=== PATIENT | male | born 1985 | race African-American/Black ===

== ENCOUNTER 2024-09-13 11:18 | Emergency (ER) | payer MEDICAID, OTHER ==
[~2024-09-13] VITALS: Ht 170.2 cm; Wt 94.0 kg
--- NOTE | 2024-09-13 11:28 | ECG ---
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
--- NOTE | 2024-09-13 11:49 | ED.PDOC ---
History of Present Illness HPI Comments This is a 39-year-old male who comes in with chief complaint of chest pain off and on for the past two weeks. The patient states that the pain is left-sided and increases with movement. There has been no nausea or vomiting. The patient was complaining of some shortness for breath but no cough. Patient was able to ambulate into the emergency department's without any difficulty. 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 Chief Complaint: Chest Pain Time Seen by MD: 11:30 Reviewed Notes: Nurses Notes, Medications, Allergies (No allergies to medications) Allergies: Coded Allergies: NO KNOWN ALLERGIES (Unverified , 09/13/24) Information Source: Patient Mode of Arrival: Ambulatory Severity: Mild Timing: Weeks Duration: Intermittent Prehospital treatment: None Associated signs and symptoms Associated mild shortness a breath Past Medical History PAST MEDICAL HISTORY: Gout Surgical History: Denies all surgeries Family History Family History: Family hx of heart nick Social History Smoker: Cigarettes Alcohol: Occasionally Drugs: Denies Drug Use, Marijuana, Methamphetamine Lives In: Home Constitutional: denies: chills, diaphoresis, fatigue, fever, malaise, sweats, weakness, others EENTM: denies: blurred vision, double vision, ear bleeding, ear discharge, ear drainage, ear pain, ear ringing, eye pain, eye redness, hearing loss, mouth pain, mouth swelling, nasal discharge, nose bleeding, nose congestion, nose pain, photophobia, tearing, throat pain, throat swelling, voice changes, others Respiratory: reports: shortness of breath; denies: cough, hemoptysis, orthopnea, SOB at rest, SOB with excertion, stridor, wheezing, others Cardiovascular: reports: chest pain; denies: dizzy spells, diaphoresis, Dyspnea on exertion, edema, irregular heart beat, left arm pain, lightheadedness, palpitations, PND, syncope, others Gastrointestinal: reports: nausea; denies: abdomen distended, abdominal pain, blood streaked bowels, constipated, diarrhea, dysphagia, difficulty swallowing, hematemesis, melena, poor appetite, poor fluid intake, rectal bleeding, rectal pain, vomiting, others Genitourinary: denies: burning, dysuria, flank pain, frequency, hematuria, incontinence, penile discharge, penile sore, pain, testicle pain, testicle swelling, urgency, others Neurological: denies: dizziness, fainting, headache, left sided numbness, left sided weakness, numbness, paresthesia, pre-existing deficit, right sided numbness, right sided weakness, seizure, speech problems, tingling, tremors, weakness, others Musculoskeletal: denies: back pain, gout, joint pain, joint swelling, muscle pain, muscle stiffness, neck pain, others Integumetry: denies: bruises, change in color, change in hair/nails, dryness, laceration, lesions, lumps, rash, wounds, others Allergic/Immunocompromised: denies: Difficulty Healing, Frequent Infections, Hives, Itching, others Hematologic/Lymphatic: denies: anemia, blood clots, easy bleeding, easy bruising, swollen glands, others Endocrine: denies: excessive hunger, excessive sweating, excessive thirst, excessive urination, flushing, intolerance to cold, intolerance to heat, unexplained weight gain, unexplained weight loss, others Psychiatric: denies: anxiety, bipolar disorder, depression, hopeless, panic disorder, schizophrenia, sleepless, suicidal, others Physical Exam General Appearance: No Apparent Distress HEENT: Normal ENT Inspection, Pharynx Normal, TMs Normal Neck: Full Range of Motion, Non-Tender, Normal, Normal Inspection Respiratory: Chest Non-Tender, Lungs Clear, No Accessory Muscle Use, No Respiratory Distress, Normal Breath Sounds Cardiovascular: No Edema, No JVD, No Murmur, No Gallop, Normal Peripheral Pulses, Regular Rate/Rhythm Breast Exam: Deferred Gastrointestinal: No Organomegaly, Non Tender, No Pulsatile Mass, Normal Bowel Sounds, Soft Genitalia: Deferred Pelvic: Deferred Rectal: Deferred Extremities: No calf tenderness, Normal capillary refill, Normal inspection, Normal range of motion, Non-tender, No pedal edema Musculoskeletal : Apperance: Normal Neurologic: Alert, surveillance analyst II-XII nml as Tested, No Motor Deficits, Normal Affect, Normal Mood, No Sensory Deficits Cerebellar Function: Normal Reflexes: Normal Skin: Dry, Normal Color, Warm Lymphatic: No Adenopathy Was a procedure done? Was a procedure done?: No EKG EKG : Pulse Rate (adult): 116 [place]: Normal Cardiac Rhythm: ST Hypertrophy: KISHAN Differential Dx Considerations may include: ACS, UT, PE X-Ray, Labs, Meds, VS Vital Signs Date Time Temp Pulse Resp B/P (MAP) Pulse Ox O2 Delivery O2 Flow Rate FiO2 09/13/24 12:20 112 09/13/24 12:11 97.0 117 20 127/89 (102) 100 09/13/24 11:54 116 09/13/24 11:27 116 Lab Test 09/13/24 12:50 09/13/24 12:00 09/13/24 11:25 Range/Units Troponin I High Sensitivity Pending < 3 L </=54 ng/L Urine Color Yellow Yellow Urine Clarity Clear Clear Urine pH 5.5 5.0-9.0 Urine Specific [place] 1.021 1.001-1.035 Urine Protein Negative Negative Urine Ketones Negative Negative Urine Blood Negative Negative /uL Urine Nitrite Negative Negative Urine Bilirubin Negative Negative Urine Urobilinogen Normal Negative mg/dL Urine Leukocyte Esterase Negative Negative /uL Urine RBC 1 0 - 3 /hpf Urine Microscopic WBC 2 0-3 /HPF Urine Squamous Epithelial Cells Few <5 /hpf Urine Bacteria None seen None Seen /hpf Urine Mucus Few None Seen Urine Glucose Normal Normal mg/dL Urine Opiates Screen Neg NEGATIVE Urine Fentanyl Screen Neg NEGATIVE Urine Barbiturates Screen Neg NEGATIVE Urine Phencyclidine Screen Neg NEGATIVE Urine Amphetamines Screen Neg NEGATIVE Urine Benzodiazepines Screen Neg NEGATIVE Urine Cocaine Screen Neg NEGATIVE Urine Cannabinoids Screen Neg NEGATIVE White Blood Count 9.6 4.4-10.8 10^3/uL Red Blood Count 4.78 4.5-5.90 10^6/uL Hemoglobin 13.3 L 13.5-17.5 g/dL Hematocrit 41.9 41.0-53.0 % Mean Corpuscular Volume 87.5 80.0-100.0 fL Mean Corpuscular Hemoglobin 27.7 L 28.0-32.0 pg Mean Corpuscular Hemoglobin Concent 31.7 L 32.0-36.0 g/dL Red Cell Distribution Width 15.0 H 11.8-14.3 % Platelet Count 412 140-450 10^3/uL Mean Platelet Volume 6.9 6.9-10.8 fL Neutrophils (%) (Auto) 70.1 37.0-80.0 % Lymphocytes (%) (Auto) 20.4 10.0-50.0 % Monocytes (%) (Auto) 7.3 0.0-12.0 % Eosinophils (%) (Auto) 1.3 0.0-7.0 % Basophils (%) (Auto) 0.9 0.0-2.0 % Neutrophils # (Auto) 6.7 1.6-8.6 10 ^3/uL Lymphocytes # (Auto) 1.9 0.4-5.4 10 ^3/uL Monocytes # (Auto) 0.7 0-1.3 10 ^3/uL Eosinophils # (Auto) 0.1 0-0.8 10 ^3/uL Basophils # (Auto) 0.1 0-0.2 10 ^3/uL Nucleated Red Blood Cells 0.0 % Sodium Level 142 136-145 mmol/L Potassium Level 3.5 3.5-5.1 mmol/L Chloride Level 108 H 98-107 mmol/L Carbon Dioxide Level 24 20-31 mmol/L Anion Gap 10 5-15 Blood Urea Nitrogen 11 9-23 mg/dL Creatinine 0.98 0.700-1.30 mg/dL Glomerular Filtration Rate Calc 101 >90 mL/min BUN/Creatinine Ratio 11.2 10.0-20.0 Serum Glucose 133 H 74-106 mg/dL Calcium Level 10.3 8.7-10.4 mg/dL Total Bilirubin 0.5 0.2-1.0 mg/dL Aspartate Amino Transferase (AST) 17 13-40 U/L Alanine Aminotransferase (ALT) 23 7-40 U/L Alkaline Phosphatase 131 H 46-116 U/L Total Protein 7.7 5.7-8.2 g/dL Albumin 4.7 3.2-4.8 g/dL Chest X-Ray Impression: No acute cardiopulmonary disease The patient's CBC and chemistry panel are within normal limits. The urine test is negative for any infection The urine tox is negative The patient was being discharged with a diagnosis of noncardiac chest pain The patient will return to the emergency department's the condition worsens. Images Reviewed?: Images reviewed and evaluated by me Time of 1ST Reevaluation: 11:54 Reevaluation 1ST: Unchanged Patient Education/Counseling: Diagnosis, Treatment, Prognosis, Need For Follow Up Family Education/Counseling: No Family Present Departure 1 Departure Time of Disposition: 14:11 Impression: Primary Impression: Non-cardiac chest pain Additional Impression: Musculoskeletal chest pain Disposition: 01 HOME / SELF CARE / HOMELESS Condition: Fair Discharged With: Self Critical Care Note Critical Care Time?: No Stability Stability form required: No Heart Score Heart Score: Heart Score Response (Comments) Value History N/A 0 EKG N/A 0 Age N/A 0 Risk Factors N/A 0 Troponin N/A 0 Total 0 I personally scribed for ALEYDA ORR MD ([email or web address]) on 09/13/24 at 12:29. Electronically submitted by Harsha Hu ([email or web address]). ALEYDA ORR MD Sep 13, 2024 11:49
[2024-09-13 12:04] LABS: Urine Bacteria None Seen /hpf (None Seen)
--- NOTE | 2024-09-13 12:04 | DVH ---
EXAM: XY CHEST PORTABLE Indication: CP Technique: Single frontal view of the chest was obtained Comparison: None FINDINGS: Lines and Tubes: None Lungs: No focal consolidation. Pleura: No effusion. No pneumothorax. Cardiomediastinal contours: Unremarkable Bones: No acute osseous abnormality. IMPRESSION: No acute cardiopulmonary disease.
[2024-09-13 12:07] LABS: Basophils # (auto) 0.1 10 ^3/uL (0-0.2); Basophils % (auto) 0.9 % (0.0-2.0); Eosinophils # (auto) 0.1 10 ^3/uL (0-0.8); Eosinophils % (auto) 1.3 % (0.0-7.0); Hematocrit 41.9 % (41.0-53.0); Hemoglobin 13.3 g/dL (13.5-17.5); Lymphocytes # (auto) 1.9 10 ^3/uL (0.4-5.4); Lymphocytes % (auto) 20.4 % (10.0-50.0); Mean Corpuscular Hemoglobin 27.7 pg (28.0-32.0); Mean Corpuscular Hgb Conc. 31.7 g/dL (32.0-36.0); Mean Corpuscular Volume 87.5 fL (80.0-100.0); Monocytes # (auto) 0.7 10 ^3/uL (0-1.3); Monocytes % (auto) 7.3 % (0.0-12.0); Neutrophils # (auto) 6.7 10 ^3/uL (1.6-8.6); Neutrophils % (auto) 70.1 % (37.0-80.0); Platelet Count (auto) 412 10^3/uL (140-450); Red Blood Cells 4.78 10^6/uL (4.5-5.90); White Blood Cell 9.6 10^3/uL (4.4-10.8)
[2024-09-13 12:20] VITALS: PULSE 112
[2024-09-13 12:26] LABS: Alanine Aminotransferase 23 U/L (7-40); Albumin 4.7 g/dL (3.2-4.8); Anion Gap 10 (5-15); Aspartate Aminotransferase 17 U/L (13-40); BUN/Creatinine Ratio 11.2 (10.0-20.0); Bilirubin, Total 0.5 mg/dL (0.2-1.0); Blood Urea Nitrogen 11 mg/dL (9-23); Calcium 10.3 mg/dL (8.7-10.4); Carbon Dioxide 24 mmol/L (20-31); Potassium 3.5 mmol/L (3.5-5.1); Sodium 142 mmol/L (136-145); Total Protein 7.7 g/dL (5.7-8.2)
[2024-09-13 12:29] LABS: Alkaline Phosphatase 131 U/L (46-116); Chloride 108 mmol/L (98-107); Glucose 133 mg/dL (74-106)
[2024-09-13 12:35] LABS: Urine Blood Negative /uL (Negative); Urine Clarity Clear (Clear); Urine Color Yellow (Yellow); Urine Mucus FEW (None Seen); Urine Protein, UAD Negative (Negative); Urine Specific Gravity 1.021 (1.001-1.035); Urine Squamous Epithelial Cell FEW /hpf (<5); Urine Urobilinogen Normal (Negative); Urine WBC 2 /HPF (0-3); Urine pH 5.5 (5.0-9.0)
[2024-09-13 12:49] LABS: Amphetamine Screen, Urine Neg (NEGATIVE)
[2024-09-13 12:59] LABS: Barbiturate Scree,Urine Neg (NEGATIVE); Benzodiazephine Screen, Urine Neg (NEGATIVE); Cannabinoid Screen, Urine Neg (NEGATIVE); Cocaine Screen, Urine Neg (NEGATIVE); Opiate Scree,Urine Neg (NEGATIVE); Phencyclidine Screen, Urine Neg (NEGATIVE)
[2024-09-13] MEDS: ASPirin 81 mg TAB PO ONE (14:11)
[2024-09-13 14:12] VITALS: BP 119/58; RESP 18; TEMP 97.8; O2SAT 99
--- NOTE | 2024-09-13 19:02 | ECG ---
[facility] Test Date: 2024-09-13 Test Time: 12:20:27 Pat Name: NICOLETTE BUI Department: ED Room: Gender: M Intelligence Clerk: RACHEL : 1985 Requested By: JESSENIA PANDEY Order Number: [id number] Reading MD: Odell Mendoza Measurements Intervals [place] Rate: 112 P: 84 ID: [id number] QRS: 143 QRSD: 83 T: 28 QT: 325 QTc: 444 Interpretive Statements Sinus tachycardia Right atrial enlargement Left posterior fascicular block Electronically Signed On 09-14-2024 9:48:17 PST by Odell Mendoza Please click the below link to view image of tracing.
== END 2024-09-13 14:20 | disposition home or self-care (01) ==
LOC: ER 11:18
DX: R07.89 Other chest pain (principal); M79.18 Myalgia, other site; M10.9 Gout, unspecified; F17.210 Nicotine dependence, cigarettes, uncomplicated
CPT/HCPCS: 36415; 71045; 80053; 80307; 81001; 84484; 85025; 93005

== ENCOUNTER 2025-03-28 18:17 | Emergency (ER) | payer OTHER ==
[~2025-03-28] VITALS: Ht 170.2 cm; Wt 95.4 kg
--- NOTE | 2025-03-28 18:37 | ED.PDOC ---
General HPI Comments HPI: 39 year old male presents to the emergency department with a chief complaint of bilateral flank pain onset 2 weeks. He has been experiencing bilateral flank pain for the past 2 weeks, noticed pain worsens with movement, described as an "air bubble" sensation. Rates pain 7/10 with movement. Patient believed it could be due to constipation, took OTC medication with no relief of symptoms. Denies dysuria, hematuria, nausea, vomiting, diarrhea, fever, chills, fall, injury, trauma, chest pain, shortness of breath. No other symptoms or modifying factors present at this time. Initial Vitals BP: 106/83 HR: 92 RR: 18 O2 Sat: 99% Temp: 98.6 F Past Medical history: Schizophrenia, anxiety, depression, Gout Past Surgical history: Denies Social History: smokes marijuana, smokes cigarettes, drinks ETOH Allergies: NKDA HPI: Poor Historian. REVIEW OF SYSTEMS: CONSTITUTIONAL: Denies acute: fever, diaphoresis, chills, generalized weakness. HEAD: Denies acute: headache, photophobia Eyes: Denies acute: Double vision, vision loss, eye pain, eye discharge. EARS: Denies acute: tinnitus, hearing loss, ear discharge, ear pain, THROAT: Denies acute: sore throat, swelling, difficulty swallowing , pain with swallowing, change in voice. NECK: Denies acute: neck pain, neck swelling, stiff neck. HEART: Denies acute : chest pain, palpitations, LUNGS: Denies acute: SOB, wheezing, cough, hemoptysis ABDOMEN: Denies acute: abdominal pain, Nausea, Vomiting, diarrhea, melena , hematemesis, hematochezia SKIN: Denies acute: rash, redness, lesions, itchiness. EXTREMITIES: Denies acute: calf pain, numbness, tingling, weakness, denies pain in extremity. Neuro: Denies acute: focal neurological deficit, motor or sensory focal neurological deficit, tremors, seizure like activity, confusion, dizziness, change in mental status, loss of bowel or bladder function, cauda equina like symptoms. : Denies acute: dysuria, hematuria, flank pain, increase in urinary frequency. PSYCH: Denies acute: hallucination, suicidal ideation, homicidal ideation. PHYSICAL EXAM: General: ----no----acute distress, awake and alert. Head: normocephalic, atraumatic. Neck: supple, trachea is midline, no swelling. Throat: Normal phonation. Eyes:, no erythema, no purulent discharge, no proptosis, no icterus. Heart: regular rate, regular rhythm, no significant murmur appreciated. Lungs: no apparent respiratory distress, Able to speak in full sentences. No wheezing, no rhonchi, no crackles. No stridors Clear to auscultation bilaterally. Abdomen: non tender to palpation, non distended, soft, no guarding, no rebound, + bowel sounds. Neuro: Awake, Alert, oriented to name, self, situation, follows commands GCS=15. Speech is normal. Skin: no petechia, no purpura, no cyanosis, non-pale, not jaundice. Lower extremities: --no - Pitting edema no deformity, no focal swelling, no calf TTP. Makes eye contact. moves all four extremities. Face: no apparent facial droop. No CVA tenderness to percussion bilaterally. Ambulating in the ED independently. ED COURSE: DISCLAIMER: This medical document was created using an electronic medical record system with voice recognition software and computerized dictation system. Although this document has been carefully reviewed, there might still be some phonetic and typographical errors. Occasional wrong-word or "sound-alike" substitutions may have occurred due to the inherent limitations of voice recognition software. These areas are purely typographical due to imperfections of the software programs and do not reflect any compromise in the patient's medical care. Please read the chart carefully and recognize, using context, where these substitutions have occurred. Chief Complaint: Flank Pain Time Seen by MD: 18:25 Primary Care Provider: NONE Reviewed notes: Medications, Allergies Allergies: Coded Allergies: NO KNOWN ALLERGIES (Unverified , 09/13/24) Information Source: Patient Mode of Arrival: Ambulatory Severity: Moderate Timing: Weeks Duration: Since onset Prehospital treatment: None Onset: Spontaneous Symptoms: Other History of: None Location: (R) Flank, (L)Flank Penile discharge: None Modifying factors: None associated signs and symptoms: Flank Pain Past Medical History PAST MEDICAL HISTORY: Anxiety, Depression, Gout, Schizophrenia Surgical History: Denies all surgeries Family History Family History: Family hx of heart nick Social History Smoker: Cigarettes Alcohol: Occasionally Drugs: Marijuana, Methamphetamine Lives In: Home Was a procedure done? Was a procedure done?: No X-Ray, Labs, Meds, VS Vital Signs Date Time Temp Pulse Resp B/P (MAP) Pulse Ox O2 Delivery O2 Flow Rate FiO2 03/28/25 18:23 98.6 92 18 106/83 99 98.6 Lab Test 03/28/25 18:56 03/28/25 18:30 Range/Units White Blood Count 10.6 4.4-10.8 10^3/uL Red Blood Count 4.61 4.5-5.90 10^6/uL Hemoglobin 12.7 L 13.5-17.5 g/dL Hematocrit 39.7 L 41.0-53.0 % Mean Corpuscular Volume 86.1 80.0-100.0 fL Mean Corpuscular Hemoglobin 27.4 L 28.0-32.0 pg Mean Corpuscular Hemoglobin Concent 31.8 L 32.0-36.0 g/dL Red Cell Distribution Width 14.4 H 11.8-14.3 % Platelet Count 446 140-450 10^3/uL Mean Platelet Volume 6.5 L 6.9-10.8 fL Neutrophils (%) (Auto) 68.9 37.0-80.0 % Lymphocytes (%) (Auto) 19.9 10.0-50.0 % Monocytes (%) (Auto) 8.6 0.0-12.0 % Eosinophils (%) (Auto) 1.8 0.0-7.0 % Basophils (%) (Auto) 0.8 0.0-2.0 % Neutrophils # (Auto) 7.3 1.6-8.6 10 ^3/uL Lymphocytes # (Auto) 2.1 0.4-5.4 10 ^3/uL Monocytes # (Auto) 0.9 0-1.3 10 ^3/uL Eosinophils # (Auto) 0.2 0-0.8 10 ^3/uL Basophils # (Auto) 0.1 0-0.2 10 ^3/uL Nucleated Red Blood Cells 0.0 % Sodium Level 146 H 136-145 mmol/L Potassium Level 3.4 L 3.5-5.1 mmol/L Chloride Level 112 H 98-107 mmol/L Carbon Dioxide Level 25 20-31 mmol/L Anion Gap 9 5-15 Blood Urea Nitrogen 9 9-23 mg/dL Creatinine 0.93 0.700-1.30 mg/dL Glomerular Filtration Rate Calc 108 >90 mL/min BUN/Creatinine Ratio 9.7 L 10.0-20.0 Serum Glucose 96 74-106 mg/dL Calcium Level 9.4 8.7-10.4 mg/dL Total Bilirubin 0.3 0.2-1.0 mg/dL Aspartate Amino Transferase (AST) 17 13-40 U/L Alanine Aminotransferase (ALT) 14 7-40 U/L Alkaline Phosphatase 123 H 46-116 U/L Total Protein 7.2 5.7-8.2 g/dL Albumin 4.5 3.2-4.8 g/dL Urine Color Light-yellow Yellow Urine Clarity Clear Clear Urine pH 6.0 5.0-9.0 Urine Specific [place] 1.026 1.001-1.035 Urine Protein Negative Negative Urine Ketones Negative Negative Urine Blood Negative Negative /uL Urine Nitrite Negative Negative Urine Bilirubin Negative Negative Urine Urobilinogen Normal Negative mg/dL Urine Leukocyte Esterase Negative Negative /uL Urine RBC 2 0 - 3 /hpf Urine Microscopic WBC 2 0-3 /HPF Urine Squamous Epithelial Cells None seen <5 /hpf Urine Bacteria Few H None Seen /hpf Urine Mucus Few None Seen Urine Glucose Normal Normal mg/dL [place] [id number] Ph: [phone] DIAGNOSTIC IMAGING Diagnostic Imaging Report : [id number] Signed PATIENT: NICOLETTE BUI ACCT: [id number] UNIT: [id number] : 1985 LOC: ER ROOM / BED: / AGE / SEX: 39 / M ADM STATUS: REG ER SERVICE 1831 ORDERING PHYSICIAN: NITA MONROE DO PROCEDURE(s): ABPL - CT AB PEL WO CON-NO ORAL OR IV REASON: b/l flank pain with movement. ORDER NUMBER(s): [id number], ACCESSION NUMBER(s): [id number] Exam: CT CT AB PEL WO CON-NO ORAL OR IV History: b/l flank pain with movement. Comparison Study: None TECHNIQUE: Multidetector CT of the abdomen and pelvis was performed from lung bases to pubic symphysis. Imaging was performed without IV contrast. Axial, coronal, and sagittal multiplanar reformats were obtained from the axial data set by the technologist. RADIATION DOSE: DLP 583.43 mGy.cm; CTDI vol 10.72 mGy. Findings: Lungs: The lung bases are clear. Heart: No cardiomegaly or pericardial effusion. Liver: Unremarkable. Gallbladder: Contracted gallbladder, but otherwise unremarkable. Spleen: Unremarkable Pancreas: Unremarkable Adrenals: Unremarkable Kidneys: Bilateral nonobstructive nephrolithiasis. No ureterolithiasis. GI tract: Diverticulosis without evidence of acute diverticulitis. : Unremarkable. Vasculature: Unremarkable Lymphadenopathy: Absent Peritoneum: No ascites Musculoskeletal: Unremarkable Soft tissues: Unremarkable Impression: 1. No acute abdominopelvic abnormalities. 2. Bilateral nonobstructive nephrolithiasis. No ureterolithiasis. 3. Diverticulosis without evidence of acute diverticulitis. ATED BY: ALE ROSALES DO DICTATED DATE/TIME: 03/28/251948 SIGNED BY: ALE ROSALES DO SIGNED DATE/TIME: 03/28/251948 CC: Time of 1ST Reevaluation: 18:55 Reevaluation 1ST: Unchanged Patient Education/Counseling: Diagnosis, Treatment Family Education/Counseling: No Family Present Comments MDM: patient presented with the above HPI.--back/flank pain----workup was initiated. patient was found with the above mentioned diagnosis. the following medications were ordered: please refer to order lists of meds and tests obtained by myself Dr. Monroe. Patient ED course and VS have been stabilized. Patient has been reassessed in the ED and remained in a stable condition. Pertinent incidental findings were discussed with the patient and/or family. Patient/family voices understanding and is agreeable with plan. Patient has been observed in the ED adequate length of time to insure improveme nt/stability. Escalation of care considered: Consideration of escalation to observation or admission Pain is only present with movement. The lesions or rashes in the area of complaint. Patient has no history of kidney stones. No actual CVA tenderness to percussion. Patient was DISCHARGED home in a stable condition. All the reports of any imaging studies that were ordered by myself were reviewed by myself. Departure 1 Departure Time of Disposition: 18:46 Impression: Primary Impression: Back pain Additional Impressions: Kidney stone Bacteria in urine Disposition: HOME / SELF CARE / HOMELESS Condition: Stable Additional Instructions: Additional instructions: You MUST follow-up with your primary care/family doctor in 1 to 2 days. If you are unable to see your primary care/family doctor, please return to our emergency room for re-assessment and re-evaluation in 1 to 2 days. Return to the emergency room here in our facility or to the nearest ER [facility] if your symptoms change or worsen. CONSULTATIONS: you MUST Follow-up for consultation as soon as possible with: --urology in 1-2 days. Please call for appointment.- You MUST call the consultants office yourself to make an appointment. You may need to arrange that through your insurance and/or your primary/family doctor. If you are unable to see the weight loss consultant in 1 to 2 days, you must return to our emergency room (or any other ER of your choice) for re-assessment and re- evaluation. Adequate fluid hydration. No heavy lifting. Below is a copy of your radiological report for follow up: [place] [address] Ph: [phone] DIAGNOSTIC IMAGING Diagnostic Imaging Report : [id number] Signed PATIENT: NICOLETTE BUI ACCT: [id number] UNIT: [id number] : 1985 LOC: ER ROOM / BED: / AGE / SEX: 39 / M ADM STATUS: REG ER SERVICE 1831 ORDERING PHYSICIAN: NITA MONROE DO PROCEDURE(s): ABPL - CT AB PEL WO CON-NO ORAL OR IV REASON: b/l flank pain with movement. ORDER NUMBER(s): [id number], ACCESSION NUMBER(s): [id number] Exam: CT CT AB PEL WO CON-NO ORAL OR IV History: b/l flank pain with movement. Comparison Study: None TECHNIQUE: Multidetector CT of the abdomen and pelvis was performed from lung bases to pubic symphysis. Imaging was performed without IV contrast. Axial, coronal, and sagittal multiplanar reformats were obtained from the axial data set by the technologist. RADIATION DOSE: DLP 583.43 mGy.cm; CTDI vol 10.72 mGy. Findings: Lungs: The lung bases are clear. Heart: No cardiomegaly or pericardial effusion. Liver: Unremarkable. Gallbladder: Contracted gallbladder, but otherwise unremarkable. Spleen: Unremarkable Pancreas: Unremarkable Adrenals: Unremarkable Kidneys: Bilateral nonobstructive nephrolithiasis. No ureterolithiasis. GI tract: Diverticulosis without evidence of acute diverticulitis. : Unremarkable. Vasculature: Unremarkable Lymphadenopathy: Absent Peritoneum: No ascites Musculoskeletal: Unremarkable Soft tissues: Unremarkable Impression: 1. No acute abdominopelvic abnormalities. 2. Bilateral nonobstructive nephrolithiasis. No ureterolithiasis. 3. Diverticulosis without evidence of acute diverticulitis. ATED BY: ALE ROSALES DO DICTATED DATE/TIME: 03/28/251948 SIGNED BY: ALE ROSALES DO SIGNED DATE/TIME: 03/28/251948 CC: e-Prescriptions Nitrofurantoin Monohydrate Mac (Macrobid) 100 Mg Cap 100 MG PO BID for 7 Days, #14 CAP Prov: NITA MONROE DO 03/28/25 Discharged With: Self Critical Care Note Critical Care Time?: No I personally scribed for NITA MONROE DO ([email or web address]) on 03/28/25 at 18:37. Electronically submitted by Sabine Botello ([email or web address]). I personally scribed for NITA MONROE DO ([email or web address]) on 03/28/25 at 20:09. Electronically submitted by Sabine Botello ([email or web address]). NITA MONROE DO Mar 28, 2025 18:37
[2025-03-28 19:19] LABS: Hematocrit 39.7 % (41.0-53.0); Hemoglobin 12.7 g/dL (13.5-17.5); Mean Corpuscular Hemoglobin 27.4 pg (28.0-32.0); Mean Corpuscular Volume 86.1 fL (80.0-100.0); Nucleated Red Blood Cells % 0.0 %
[2025-03-28 19:33] LABS: Alanine Aminotransferase 14 U/L (7-40); Albumin 4.5 g/dL (3.2-4.8); Anion Gap 9 (5-15); BUN/Creatinine Ratio 9.7 (10.0-20.0); Calcium 9.4 mg/dL (8.7-10.4); Carbon Dioxide 25 mmol/L (20-31); Glucose 96 mg/dL (74-106); Total Protein 7.2 g/dL (5.7-8.2)
[2025-03-28 19:34] LABS: Bilirubin, Total 0.3 mg/dL (0.2-1.0)
[2025-03-28 19:37] LABS: Alkaline Phosphatase 123 U/L (46-116); Blood Urea Nitrogen 9 mg/dL (9-23); Chloride 112 mmol/L (98-107); Potassium 3.4 mmol/L (3.5-5.1); Sodium 146 mmol/L (136-145)
--- NOTE | 2025-03-28 19:51 | DVH ---
Exam: CT CT AB PEL WO CON-NO ORAL OR IV History: b/l flank pain with movement. Comparison Study: None TECHNIQUE: Multidetector CT of the abdomen and pelvis was performed from lung bases to pubic symphysi s. Imaging was performed without IV contrast. Axial, coronal, and sagittal multiplanar reformats were obtained from the axial data set by the technologist. RADIATION DOSE: DLP 583.43 mGy.cm; CTDI vol 10.72 mGy. Findings: Lungs: The lung bases are clear. Heart: No cardiomegaly or pericardial effusion. Liver: Unremarkable. Gallbladder: Contracted gallbladder, but otherwise unremarkable. Spleen: Unremarkable Pancreas: Unremarkable Adrenals: Unremarkable Kidneys: Bilateral nonobstructive nephrolithiasis. No ureterolithiasis. GI tract: Diverticulosis without evidence of acute diverticulitis. : Unremarkable. Vasculature: Unremarkable Lymphadenopathy: Absent Peritoneum: No ascites Musculoskeletal: Unremarkable Soft tissues: Unremarkable Impression: 1. No acute abdominopelvic abnormalities. 2. Bilateral nonobstructive nephrolithiasis. No ureterolithiasis. 3. Diverticulosis without evidence of acute diverticulitis.
[2025-03-28 20:12] LABS: Urine Protein, UAD Negative (Negative)
[2025-03-28] MEDS ORDERED: NITR-87 PO (20:43)
[2025-03-28 20:52] VITALS: BP 128/87; PULSE 82; RESP 18; TEMP 98.4; O2SAT 97
== END 2025-03-28 20:55 | disposition home or self-care (01) ==
LOC: ER 18:17
DX: N20.0 Calculus of kidney (principal); M54.9 Dorsalgia, unspecified; R82.71 Bacteriuria
CPT/HCPCS: 36415; 74176; 80053; 81001; 85025

== ENCOUNTER 2025-04-02 17:28 | Emergency (ER) | payer OTHER ==
[~2025-04-02] VITALS: Ht 170.2 cm; Wt 97.9 kg
[~2025-04-02 17:28] MED LIST: NITR-87 PO
[2025-04-02 17:29] VITALS: BP 123/76; PULSE 109; RESP 18; TEMP 98.2; O2SAT 98
[2025-04-02 18:56] LABS: Hematocrit 40.3 % (41.0-53.0); Hemoglobin 13.0 g/dL (13.5-17.5); Mean Corpuscular Hemoglobin 28.0 pg (28.0-32.0); Mean Corpuscular Volume 86.9 fL (80.0-100.0); Nucleated Red Blood Cells % 0.1 %
--- NOTE | 2025-04-02 18:57 | DVH ---
Indication: flank pain Technique: CT axial images of the abdomen and pelvis are obtained without contrast. Coronal and sagit tello reformats were obtained. Radiation Dose Information: CTDI volume is 12.43 mGy. Dose-length product is 694 mGy*cm Comparison: CT CT AB PEL WO CON-NO ORAL OR IV on DOS: 03/28/25 FINDINGS: There is limited interpretation of the abdomen and pelvis without administration of intravenous contr ast. Lung bases demonstrate tiny bilateral pleural effusions. Adrenal glands, spleen, pancreas and liver unremarkable in shape. Cholelithiasis and mild pericholec ystic stranding. Kidneys demonstrate no hydronephrosis. Nonobstructing right renal calculi 2 mm. Nonobstructing left renal calculi up to 3 mm. Stomach partially distended. Small bowel loops are normal in caliber. Colonic diverticula. Moderate volume stool in the colon. Normal appendix. Bladder partially distended. No free pelvic fluid. No inguinal lymphadenopathy. No aggressive osseous process. IMPRESSION: Limited evaluation without contrast. Tiny bilateral pleural effusions. Cholelithiasis and mild pericholecystic stranding. Recommend HIDA scan, abdominal ultrasound to eval uate for cholecystitis. Bilateral nonobstructing renal calculi. Colonic diverticular disease. Other findings as described.
[2025-04-02 19:09] LABS: Alanine Aminotransferase 15 U/L (7-40); Albumin 4.4 g/dL (3.2-4.8); Anion Gap 11 (5-15); BUN/Creatinine Ratio 6.3 (10.0-20.0); Calcium 9.5 mg/dL (8.7-10.4); Carbon Dioxide 23 mmol/L (20-31); Glucose 85 mg/dL (74-106); Potassium 3.5 mmol/L (3.5-5.1); Sodium 144 mmol/L (136-145); Total Protein 7.6 g/dL (5.7-8.2)
[2025-04-02 19:10] LABS: Bilirubin, Total 0.4 mg/dL (0.2-1.0)
[2025-04-02 19:11] LABS: Alkaline Phosphatase 128 U/L (46-116); Blood Urea Nitrogen 6 mg/dL (9-23); Chloride 110 mmol/L (98-107)
[2025-04-02 19:23] LABS: Urine Protein, UAD Negative (Negative)
[2025-04-02] MEDS: cefTRIAXone 1GM/50ML D5W 50 ML IV ONE (19:45)
--- NOTE | 2025-04-02 20:26 | DVH ---
RIGHT UPPER QUADRANT ABDOMINAL ULTRASOUND CLINICAL HISTORY: ruq eval COMPARISON: CT obtained earlier the same day. TECHNIQUE: Grayscale and color Doppler ultrasound imaging of the right upper quadrant is performed. FINDINGS: Pancreas: Obscured by artifact from bowel gas. Liver: Measures approximately 15.8 cm in length. No discrete Hepatic lesions as visualized. The port al vein appears patent. Gallbladder: Dependent cholelithiasis and sludging. Gallbladder wall thickness 4.2 mm. No sonographic cobb's sign elicited. Common bile duct: Nondilated. Right Kidney: Muscle 10.3 cm in length no hydronephrosis. Scattered small nonobstructing calcificatio ns/calculi. Right upper quadrant Inferior vena cava: Visualized portions appear grossly patent. IMPRESSION: Cholelithiasis with gallbladder wall thickening. No sonographic cobb's sign elicited. This may be due to recent analgesic administration. Findings are equivocal for cholecystitis. If there is persis tent concern, HIDA scan may be obtained to further evaluate. Nonobstructing nephrolithiasis.
--- NOTE | 2025-04-02 20:39 | ED.PDOC ---
General HPI Comments RAMYA: 33-year-old male presents to emergency department for bilateral flank discomfort constant nonradiating without any associated symptoms. Patient was seen for this recently. He said the symptoms are now has been lasting for three weeks. I saw him recently and imaging studies were unremarkable and he was discharged home with UTI antibiotics which he is currently on. He said he has not finish them yet. Patient denies any other new symptoms. Patient has not been taking anything for his pain and discomfort at home.. Patient is nontoxic in appearance in no acute distress and requesting food to eat. Past Medical history: Schizophrenia, anxiety, depression, Gout Past Surgical history: Denies Social History: smokes marijuana, smokes cigarettes, drinks ETOH Allergies: NKDA Vitals: temperature 98.2F pulse 109 respiratory rate 18 blood pressure 123/76 SpO2 98%RA HPI: Poor Historian. REVIEW OF SYSTEMS: CONSTITUTIONAL: Denies acute: fever, diaphoresis, chills, generalized weakness. HEAD: Denies acute: headache, photophobia Eyes: Denies acute: Double vision, vision loss, eye pain, eye discharge. EARS: Denies acute: tinnitus, hearing loss, ear discharge, ear pain, THROAT: Denies acute: sore throat, swelling, difficulty swallowing , pain with swallowing, change in voice. NECK: Denies acute: neck pain, neck swelling, stiff neck. HEART: Denies acute : chest pain, palpitations, LUNGS: Denies acute: SOB, wheezing, cough, hemoptysis ABDOMEN: Denies acute: abdominal pain, Nausea, Vomiting, diarrhea, melena , hematemesis, hematochezia SKIN: Denies acute: rash, redness, lesions, itchiness. EXTREMITIES: Denies acute: calf pain, numbness, tingling, weakness, denies pain in extremity. Neuro: Denies acute: focal neurological deficit, motor or sensory focal neurological deficit, tremors, seizure like activity, confusion, dizziness, change in mental status, loss of bowel or bladder function, cauda equina like symptoms. : Denies acute: dysuria, hematuria, flank pain, increase in urinary frequency. PSYCH: Denies acute: hallucination, suicidal ideation, homicidal ideation. PHYSICAL EXAM: General: ----no----acute distress, awake and alert. Head: normocephalic, atraumatic. Neck: supple, trachea is midline, no swelling. Throat: Normal phonation. Eyes:, no erythema, no purulent discharge, no proptosis, no icterus. Heart: regular rate, regular rhythm, no significant murmur appreciated. Lungs: no apparent respiratory distress, Able to speak in full sentences. No wheezing, no rhonchi, no crackles. No stridors Clear to auscultation bilaterally. Abdomen: non tender to palpation, non distended, soft, no guarding, no rebound, + bowel sounds. Specifically no epigastric and no right upper quadrant tenderness to palpation. Neuro: Awake, Alert, oriented to name, self, situation, follows commands GCS=15. Speech is normal. Skin: no petechia, no purpura, no cyanosis, non-pale, not jaundice. Lower extremities: --no - Pitting edema no deformity, no focal swelling, no calf TTP. Makes eye contact. moves all four extremities. Face: no apparent facial droop. No CVA tenderness to percussion bilaterally. Ambulating in the ED independently. ED COURSE: DISCLAIMER: This medical document was created using an electronic medical record system with voice recognition software and computerized dictation system. Although this document has been carefully reviewed, there might still be some phonetic and typographical errors. Occasional wrong-word or "sound-alike" substitutions may have occurred due to the inherent limitations of voice recognition software. These areas are purely typographical due to imperfections of the software programs and do not reflect any compromise in the patient's medical care. Please read the chart carefully and recognize, using context, where these substitutions have occurred. Chief Complaint: Flank Pain Time Seen by MD: 20:35 Primary Care Provider: NONE Allergies: Coded Allergies: NO KNOWN ALLERGIES (Unverified , 09/13/24) Home Meds Active Scripts Nitrofurantoin Monohydrate Mac (Macrobid) 100 Mg Cap, 100 MG PO BID for 7 Days, #14 CAP Prov:NITA MONROE 03/28/25 Information Source: Patient Mode of Arrival: Ambulatory Past Medical History PAST MEDICAL HISTORY: Anxiety, Depression, Gout, Schizophrenia Surgical History: Denies all surgeries Family History Family History: Family hx of heart nick Social History Smoker: Cigarettes Alcohol: Occasionally Drugs: Marijuana, Methamphetamine Lives In: Home Was a procedure done? Was a procedure done?: No X-Ray, Labs, Meds, VS Vital Signs Date Time Temp Pulse Resp B/P (MAP) Pulse Ox O2 Delivery O2 Flow Rate FiO2 04/02/25 17:29 98.2 109 18 123/76 98 98.2 Lab Test 04/02/25 18:43 04/02/25 18:35 Range/Units Urine Color Yellow Yellow Urine Clarity Clear Clear Urine pH 6.0 5.0-9.0 Urine Specific [place] 1.027 1.001-1.035 Urine Protein Negative Negative Urine Ketones Negative Negative Urine Blood Negative Negative /uL Urine Nitrite Negative Negative Urine Bilirubin Negative Negative Urine Urobilinogen Normal Negative mg/dL Urine Leukocyte Esterase Negative Negative /uL Urine RBC 5 0 - 3 /hpf Urine Microscopic WBC 4 H 0-3 /HPF Urine Squamous Epithelial Cells Few <5 /hpf Urine Bacteria Few H None Seen /hpf Urine Mucus Few None Seen Urine Glucose Normal Normal mg/dL White Blood Count 11.0 H 4.4-10.8 10^3/uL Red Blood Count 4.64 4.5-5.90 10^6/uL Hemoglobin 13.0 L 13.5-17.5 g/dL Hematocrit 40.3 L 41.0-53.0 % Mean Corpuscular Volume 86.9 80.0-100.0 fL Mean Corpuscular Hemoglobin 28.0 28.0-32.0 pg Mean Corpuscular Hemoglobin Concent 32.2 32.0-36.0 g/dL Red Cell Distribution Width 14.8 H 11.8-14.3 % Platelet Count 412 140-450 10^3/uL Mean Platelet Volume 6.9 6.9-10.8 fL Neutrophils (%) (Auto) 74.2 37.0-80.0 % Lymphocytes (%) (Auto) 14.4 10.0-50.0 % Monocytes (%) (Auto) 8.9 0.0-12.0 % Eosinophils (%) (Auto) 2.2 0.0-7.0 % Basophils (%) (Auto) 0.3 0.0-2.0 % Neutrophils # (Auto) 8.1 1.6-8.6 10 ^3/uL Lymphocytes # (Auto) 1.6 0.4-5.4 10 ^3/uL Monocytes # (Auto) 1.0 0-1.3 10 ^3/uL Eosinophils # (Auto) 0.2 0-0.8 10 ^3/uL Basophils # (Auto) 0 0-0.2 10 ^3/uL Nucleated Red Blood Cells 0.1 % Sodium Level 144 136-145 mmol/L Potassium Level 3.5 3.5-5.1 mmol/L Chloride Level 110 H 98-107 mmol/L Carbon Dioxide Level 23 20-31 mmol/L Anion Gap 11 5-15 Blood Urea Nitrogen 6 L 9-23 mg/dL Creatinine 0.95 0.700-1.30 mg/dL Glomerular Filtration Rate Calc 105 >90 mL/min BUN/Creatinine Ratio 6.3 L 10.0-20.0 Serum Glucose 85 74-106 mg/dL Lactic Acid Level 1.5 0.4-2.0 mmol/L Calcium Level 9.5 8.7-10.4 mg/dL Total Bilirubin 0.4 0.2-1.0 mg/dL Aspartate Amino Transferase (AST) 14 13-40 U/L Alanine Aminotransferase (ALT) 15 7-40 U/L Alkaline Phosphatase 128 H 46-116 U/L Total Protein 7.6 5.7-8.2 g/dL Albumin 4.4 3.2-4.8 g/dL [place] [address] Ph: [phone] DIAGNOSTIC IMAGING Diagnostic Imaging Report : [id number] Signed PATIENT: NICOLETTE BUI ACCT: [id number] UNIT: [id number] : 1985 LOC: ER ROOM / BED: / AGE / SEX: 39 / M ADM STATUS: REG ER SERVICE [id number] ORDERING PHYSICIAN: NITA MONROE DO PROCEDURE(s): ABDL - ABDOMEN LIMITED REASON: ruq eval ORDER NUMBER(s): [id number], ACCESSION NUMBER(s): [id number] RIGHT UPPER QUADRANT ABDOMINAL ULTRASOUND CLINICAL HISTORY: ruq eval COMPARISON: CT obtained earlier the same day. TECHNIQUE: Grayscale and color Doppler ultrasound imaging of the right upper quadrant is performed. FINDINGS: Pancreas: Obscured by artifact from bowel gas. Liver: Measures approximately 15.8 cm in length. No discrete Hepatic lesions as visualized. The portal vein appears patent. Gallbladder: Dependent cholelithiasis and sludging. Gallbladder wall thickness 4.2 mm. No sonographic cobb's sign elicited. Common bile duct: Nondilated. Right Kidney: Muscle 10.3 cm in length no hydronephrosis. Scattered small nonobstructing calcifications/calculi. Right upper quadrant Inferior vena cava: Visualized portions appear grossly patent. IMPRESSION: Cholelithiasis with gallbladder wall thickening. No sonographic cobb's sign elicited. This may be due to recent analgesic administration. Findings are equivocal for cholecystitis. If there is persistent concern, HIDA scan may be obtained to further evaluate. Nonobstructing nephrolithiasis. ATED BY: YOVANI DAWSON MD DICTATED DATE/TIME: 04/02/252023 SIGNED BY: YOVANI DAWSON MD SIGNED DATE/TIME: 04/02/252023 CC: [place] [address] Ph: [phone] DIAGNOSTIC IMAGING Diagnostic Imaging Report : [id number] Signed PATIENT: NICOLETTE BUI ACCT: [id number] UNIT: [id number] : 1985 LOC: ER ROOM / BED: / AGE / SEX: 39 / M ADM STATUS: REG ER SERVICE [id number] ORDERING PHYSICIAN: NITA MONROE DO PROCEDURE(s): ABPL - CT AB PEL WO CON-NO ORAL OR IV REASON: flank pain ORDER NUMBER(s): [id number], ACCESSION NUMBER(s): [id number] Indication: flank pain Technique: CT axial images of the abdomen and pelvis are obtained without contrast. Coronal and sagittal reformats were obtained. Radiation Dose Information: CTDI volume is 12.43 mGy. Dose-length product is 694 mGy*cm Comparison: CT CT AB PEL WO CON-NO ORAL OR IV on DOS: 03/28/25 FINDINGS: There is limited interpretation of the abdomen and pelvis without administration of intravenous contrast. Lung bases demonstrate tiny bilateral pleural effusions. Adrenal glands, spleen, pancreas and liver unremarkable in shape. Cholelithiasis and mild pericholecystic stranding. Kidneys demonstrate no hydronephrosis. Nonobstructing right renal calculi 2 mm. Nonobstructing left renal calculi up to 3 mm. Stomach partially distended. Small bowel loops are normal in caliber. Colonic diverticula. Moderate volume stool in the colon. Normal appendix. Bladder partially distended. No free pelvic fluid. No inguinal lymphadenopathy. No aggressive osseous process. IMPRESSION: Limited evaluation without contrast. Tiny bilateral pleural effusions. Cholelithiasis and mild pericholecystic stranding. Recommend HIDA scan, abdominal ultrasound to evaluate for cholecystitis. Bilateral nonobstructing renal calculi. Colonic diverticular disease. Other findings as described. ATED BY: VERITO JACKSON MD DICTATED DATE/TIME: 04/02/251856 SIGNED BY: VERITO JACKSON MD SIGNED DATE/TIME: 04/02/251856 CC: Time of 1ST Reevaluation: 21:05 Reevaluation 1ST: Unchanged Patient Education/Counseling: Diagnosis, Treatment, Need For Follow Up Family Education/Counseling: No Family Present SEPSIS Sepsis Screen Date sepsis recognized/suspect: Apr 02, 2025 Time Sepsis recognized/suspect: 1731 Recent Procedure: No On Antibiotic Therapy: Yes Respiratory Rate >20: No Heart Rate >90: Yes Temp<36 C (96.8 F) or >38.3 C: No SBP <90 or MAP <65 mmHG: No New Acute Mental Status Change: No Is the patient on CPAP, BIPAP,: No Physician Orders Pumping Station Supervisor (04/02/25 ) Ct Ab Pel Wo Con-No Oral Or Iv (04/02/25 18:19) Abdomen Limited (04/02/25 19:02) Ketorolac Injection (Toradol Injection) (04/02/25 20:45) Vital Signs Date Time Temp Pulse Resp B/P (MAP) Pulse Ox O2 Delivery O2 Flow Rate FiO2 04/02/25 17:29 98.2 109 18 123/76 98 98.2 Laboratory Tests Test 04/02/25 18:35 Lactic Acid Level 1.5 mmol/L (0.4-2.0) White Blood Count 11.0 10^3/uL (4.4-10.8) H Departure 1 Departure Time of Disposition: 20:41 Impression: Primary Impression: UTI (urinary tract infection) Additional Impressions: Cholelithiasis Flank pain Disposition: 01 HOME / SELF CARE / HOMELESS Condition: Stable Additional Instructions: Additional instructions: Please read all instructions provided in this packet carefully. You MUST follow-up with your primary care/family doctor in 1 to 2 days. If you are unable to see your primary care/family doctor, please return to our emergency room for re-assessment and re-evaluation in 1 to 2 days. Return to the emergency room here in our facility or to the nearest ER [facility] if your symptoms change or worsen. CONSULTATIONS: you MUST Follow-up for consultation as soon as possible with: -urology in 1-2 days. Please call for appointment. You MUST call the consultants office yourself to make an appointment. You may need to arrange that through your insurance and/or your primary/family doctor. If you are unable to see the statistical consultant in 1 to 2 days, you must return to our emergency room (or any other ER of your choice) for re-assessment and re- evaluation. Adequate fluid hydration. Although you have been discharged from the Emergency Department, this does not mean that you have a "clean bill of health". No definitive diagnosis for your symptoms has been made today. It is possible that you are in the process of developing a serious illness. This is why you must return to the ED without fail if any new or worsening symptoms develop. Below is a copy of your radiological report for follow up: [place] [address] Ph: [phone] DIAGNOSTIC IMAGING Diagnostic Imaging Report : [id number] Signed PATIENT: NICOLETTE BUI ACCT: [id number] UNIT: [id number] : 1985 LOC: ER ROOM / BED: / AGE / SEX: 39 / M ADM STATUS: REG ER SERVICE 190 ORDERING PHYSICIAN: NITA MONROE DO PROCEDURE(s): ABDL - ABDOMEN LIMITED REASON: ruq eval ORDER NUMBER(s): [id number], ACCESSION NUMBER(s): [id number] RIGHT UPPER QUADRANT ABDOMINAL ULTRASOUND CLINICAL HISTORY: ruq eval COMPARISON: CT obtained earlier the same day. TECHNIQUE: Grayscale and color Doppler ultrasound imaging of the right upper quadrant is performed. FINDINGS: Pancreas: Obscured by artifact from bowel gas. Liver: Measures approximately 15.8 cm in length. No discrete Hepatic lesions as visualized. The portal vein appears patent. Gallbladder: Dependent cholelithiasis and sludging. Gallbladder wall thickness 4.2 mm. No sonographic cobb's sign elicited. Common bile duct: Nondilated. Right Kidney: Muscle 10.3 cm in length no hydronephrosis. Scattered small nonobstructing calcifications/calculi. Right upper quadrant Inferior vena cava: Visualized portions appear grossly patent. IMPRESSION: Cholelithiasis with gallbladder wall thickening. No sonographic cobb's sign elicited. This may be due to recent analgesic administration. Findings are equivocal for cholecystitis. If there is persistent concern, HIDA scan may be obtained to further evaluate. Nonobstructing nephrolithiasis. ATED BY: YOVANI DAWSON MD DICTATED DATE/TIME: 04/02/252023 SIGNED BY: YOVANI DAWSON MD SIGNED DATE/TIME: 04/02/252023 CC: [place] [address] Ph: [phone] DIAGNOSTIC IMAGING Diagnostic Imaging Report : [id number] Signed PATIENT: NICOLETTE BUI ACCT: [id number] UNIT: [id number] : 1985 LOC: ER ROOM / BED: / AGE / SEX: 39 / M ADM STATUS: REG ER SERVICE [id number] ORDERING PHYSICIAN: NITA MONROE DO PROCEDURE(s): ABPL - CT AB PEL WO CON-NO ORAL OR IV REASON: flank pain ORDER NUMBER(s): [id number], ACCESSION NUMBER(s): [id number] Indication: flank pain Technique: CT axial images of the abdomen and pelvis are obtained without contrast. Coronal and sagittal reformats were obtained. Radiation Dose Information: CTDI volume is 12.43 mGy. Dose-length product is 694 mGy*cm Comparison: CT CT AB PEL WO CON-NO ORAL OR IV on DOS: 03/28/25 FINDINGS: There is limited interpretation of the abdomen and pelvis without administration of intravenous contrast. Lung bases demonstrate tiny bilateral pleural effusions. Adrenal glands, spleen, pancreas and liver unremarkable in shape. Cholelithiasis and mild pericholecystic stranding. Kidneys demonstrate no hydronephrosis. Nonobstructing right renal calculi 2 mm. Nonobstructing left renal calculi up to 3 mm. Stomach partially distended. Small bowel loops are normal in caliber. Colonic diverticula. Moderate volume stool in the colon. Normal appendix. Bladder partially distended. No free pelvic fluid. No inguinal lymphadenopathy. No aggressive osseous process. IMPRESSION: Limited evaluation without contrast. Tiny bilateral pleural effusions. Cholelithiasis and mild pericholecystic stranding. Recommend HIDA scan, abdominal ultrasound to evaluate for cholecystitis. Bilateral nonobstructing renal calculi. Colonic diverticular disease. Other findings as described. ATED BY: VERITO JACKSON MD DICTATED DATE/TIME: 04/02/251856 SIGNED BY: VERITO JACKSON MD SIGNED DATE/TIME: 04/02/251856 CC: Discharged With: Self Critical Care Note Critical Care Time?: No I personally scribed for NITA MONROE DO ([email or web address]) on 04/02/25 at 20:39. Elec tronically submitted by Miller Cavazos [email or web address]). I personally scribed for NITA MONROE DO ([email or web address]) on 04/02/25 at 20:45. E lectronically submitted by Miller Cavazos [email or web address]). NITA MONROE DO Apr 02, 2025 20:39
[2025-04-02] MEDS: KETOROLAC TROMETH 30 MG/ML 1ML VIAL IV ONE (20:45)
== END 2025-04-02 22:04 | disposition home or self-care (01) ==
LOC: ER 17:28
DX: N39.0 Urinary tract infection, site not specified (principal); K80.20 Calculus of gallbladder without cholecystitis without obstruction; R10.9 Unspecified abdominal pain; F20.9 Schizophrenia, unspecified; F41.9 Anxiety disorder, unspecified
CPT/HCPCS: 36415; 74176; 76705; 80053; 81001; 83605; 85025

== ENCOUNTER 2025-04-03 10:37 | Emergency (ER) | payer OTHER ==
[~2025-04-03] VITALS: Ht 170.2 cm; Wt 95.0 kg
--- NOTE | 2025-04-03 11:31 | ED.PDOC ---
General HPI Comments This is a 39-year-old male who presents to the ED today for antibiotic shot with diagnosed UTI. Patient came to the ED yesterday, and was diagnosed with a UTI. Patient has no further complaints at this time and otherwise denies further associated symptoms of nausea, vomiting, dysuria, hematuria, or abdominal pain. Chief Complaint: Urinary Time Seen by MD: 11:24 Primary Care Provider: NONE Reviewed notes: Nurses Notes, Medications, Allergies Allergies: Coded Allergies: NO KNOWN ALLERGIES (Unverified , 09/13/24) Home Meds Active Scripts Nitrofurantoin Monohydrate Mac (Macrobid) 100 Mg Cap, 100 MG PO BID for 7 Days, #14 CAP Prov:NITA MONROE DO 03/28/25 Information Source: Patient Mode of Arrival: Ambulatory Severity: Moderate Timing: Days Duration: Since onset Onset: Spontaneous History of: UTI Location: (R) Flank, (L)Flank Past Medical History PAST MEDICAL HISTORY: Anxiety, Depression, Gout, Schizophrenia Surgical History: Denies all surgeries Family History Family History: Family hx of heart nick Social History Smoker: Cigarettes Alcohol: Occasionally Drugs: Marijuana, Methamphetamine Lives In: Home Constitutional: denies: chills, diaphoresis, fatigue, fever, malaise, sweats, weakness, others EENTM: denies: blurred vision, double vision, ear bleeding, ear discharge, ear drainage, ear pain, ear ringing, eye pain, eye redness, hearing loss, mouth pain, mouth swelling, nasal discharge, nose bleeding, nose congestion, nose pain, photophobia, tearing, throat pain, throat swelling, voice changes, others Respiratory: denies: cough, hemoptysis, orthopnea, SOB at rest, shortness of breath, SOB with excertion, stridor, wheezing, others Cardiovascular: denies: chest pain, dizzy spells, diaphoresis, Dyspnea on exertion, edema, irregular heart beat, left arm pain, lightheadedness, palpitations, PND, syncope, others Gastrointestinal: denies: abdomen distended, abdominal pain, blood streaked bowels, constipated, diarrhea, dysphagia, difficulty swallowing, hematemesis, melena, nausea, poor appetite, poor fluid intake, rectal bleeding, rectal pain, vomiting, others Genitourinary: denies: burning, dysuria, flank pain, frequency, hematuria, incontinence, penile discharge, penile sore, pain, testicle pain, testicle swelling, urgency, others Neurological: denies: dizziness, fainting, headache, left sided numbness, left sided weakness, numbness, paresthesia, pre-existing deficit, right sided numbness, right sided weakness, seizure, speech problems, tingling, tremors, weakness, others Musculoskeletal: denies: back pain, gout, joint pain, joint swelling, muscle pa in, muscle stiffness, neck pain, others Integumetry: denies: bruises, change in color, change in hair/nails, dryness, laceration, lesions, lumps, rash, wounds, others Allergic/Immunocompromised: denies: Difficulty Healing, Frequent Infections, Hives, Itching, others Hematologic/Lymphatic: denies: anemia, blood clots, easy bleeding, easy bruising, swollen glands, others Endocrine: denies: excessive hunger, excessive sweating, excessive thirst, excessive urination, flushing, intolerance to cold, intolerance to heat, unexplained weight gain, unexplained weight loss, others Psychiatric: denies: anxiety, bipolar disorder, depression, hopeless, panic disorder, schizophrenia, sleepless, suicidal, others All Other Systems: Reviewed and Negative Physical Exam General Appearance: Mild Distress, Normal HEENT: Normal ENT Inspection, Pharynx Normal, TMs Normal Neck: Full Range of Motion, Non-Tender, Normal, Normal Inspection Respiratory: Chest Non-Tender, Lungs Clear, No Accessory Muscle Use, No Respiratory Distress, Normal Breath Sounds Cardiovascular: No Edema, No JVD, No Murmur, No Gallop, Normal Peripheral Pulses, Regular Rate/Rhythm Breast Exam: Deferred Gastrointestinal: No Organomegaly, Non Tender, No Pulsatile Mass, Normal Bowel Sounds, Soft Genitalia: Deferred Pelvic: Deferred Rectal: Deferred Extremities: No calf tenderness, Normal capillary refill, Normal inspection, Normal range of motion, Non-tender, No pedal edema Musculoskeletal : Apperance: Normal Neurologic: Alert, museum tour guide II-XII nml as Tested, No Motor Deficits, Normal Affect, Normal Mood, No Sensory Deficits Cerebellar Function: Normal Reflexes: Normal Skin: Dry, Normal Color, Warm Lymphatic: No Adenopathy Was a procedure done? Was a procedure done?: No Differential Diagnosis Penile/Scrotal: UTI Urinary Problem (Male): UTI X-Ray, Labs, Meds, VS Vital Signs Date Time Temp Pulse Resp B/P (MAP) Pulse Ox O2 Delivery O2 Flow Rate FiO2 04/03/25 10:38 97.8 89 18 116/79 97 97.8 Current Medications Medications (Trade) Dose Ordered Sig/Lisette Route Start Time Stop Time Status Last Admin Ceftriaxone Sodium (Rocephin) 1,000 mg ONCE ONCE IM 04/03/25 11:45 04/03/25 11:46 DC 04/03/25 11:52 X-Ray, Labs, Meds, VS Comment This is a 39-year-old male who presents to the ED today for antibiotic shot for UTI. Patient arrives alert and oriented, ABC's intact, afebrile, vital signs stable, saturating well in room air Patient was given: 1000 mg Rocephin. Tolerated medications with no adverse reaction. Additional MDM Review of External, Non-ED records: External records reviewed. Discussion with independent historian (EMS, family) history obtained from the patient/parents (if applicable) at bedside Chronic conditions affecting care: None Social determinants of health affecting care: None Consideration of admission (observation or admission): I considered escalation of care to admission for this patient, however given the reassuring workup, the patient is safe for outpatient management. Discussion with the Radiology: No Tests considered but not performed: Prescription medication considered but not given: 12 lead EKG interpretation: Images Reviewed?: Images reviewed and evaluated by me Time of 1ST Reevaluation: 11:42 Reevaluation 1ST: Unchanged Patient Education/Counseling: Diagnosis, Treatment, Need For Follow Up Family Education/Counseling: No Family Present Medical Screening: No EMC Exist At This Time SEPSIS Sepsis Screen Date sepsis recognized/suspect: Apr 03, 2025 Time Sepsis recognized/suspect: 1038 Recent Procedure: No On Antibiotic Therapy: No Respiratory Rate >20: No Heart Rate >90: No Temp<36 C (96.8 F) or >38.3 C: No SBP <90 or MAP <65 mmHG: No New Acute Mental Status Change: No Is the patient on CPAP, BIPAP,: No Vital Signs Date Time Temp Pulse Resp B/P (MAP) Pulse Ox O2 Delivery O2 Flow Rate FiO2 04/03/25 10:38 97.8 89 18 116/79 97 97.8 Medications Medications Dose Ordered Sig/Lisette Route Start Time Stop Time Status Last Admin Dose Admin Ceftriaxone Sodium 1,000 mg ONCE ONCE IM 04/03/25 11:45 04/03/25 11:46 DC 04/03/25 11:52 Departure 1 Departure Time of Disposition: 11:31 Impression: Primary Impression: UTI (urinary tract infection) Qualified Codes: N30.00 - Acute cystitis without hematuria Disposition: HOME / SELF CARE / HOMELESS Condition: Stable Additional Instructions: Follow up with PCP in 1-2 days. Take medications as prescribed. Return to the ED for any new or worsening symptoms. Discharged With: Self Critical Care Note Critical Care Time?: No Stability Stability form required: No Heart Score Heart Score: Heart Score Response (Comments) Value History N/A 0 EKG N/A 0 Age N/A 0 Risk Factors N/A 0 Troponin N/A 0 Total 0 I personally scribed for ANDREA ARRIOLA NP ([email or web address]) on 04/03/25 at 11:49. Electronically submitted by Hansa Denton ([employer]). I personally scribed for ANDREA ARRIOLA NP ([email or web address]) on 04/03/25 at 11:50. Electronically submitted by Hansa Denton ([employer]). ANDREA ARRIOLA NP Apr 03, 2025 11:31
[2025-04-03] MEDS: cefTRIAXone SOD 1,000 MG VL IM ONE (11:52)
[2025-04-03 12:36] VITALS: BP 136/86; PULSE 86; RESP 16; TEMP 98.7; O2SAT 96
== END 2025-04-03 12:37 | disposition home or self-care (01) ==
LOC: ER 10:37
DX: N39.0 Urinary tract infection, site not specified (principal); F17.210 Nicotine dependence, cigarettes, uncomplicated; Z79.899 Other long term (current) drug therapy
CPT/HCPCS: 96372; 99283; J0696

== ENCOUNTER 2025-05-15 15:52 | Emergency (ER) | payer OTHER ==
[~2025-05-15] VITALS: Ht 152.4 cm; Wt 94.4 kg
[2025-05-15 15:54] VITALS: TEMP 98.2
--- NOTE | 2025-05-15 16:17 | ED.PDOC ---
General HPI Comments 39 year old male PMHx schizophrenia, anxiety, depression, Gout, kidney stones presents to the ED with a chief compliant of LT flank pain onset 2 weeks. Patient states he has been experiencing LT flank pain for the past 2 weeks, worsen today. He was seen in an ED about 1 month ago, was diagnosed with kidney stones, was not prescribed medication. Denies fever, chills, dysuria, hematuria, nausea, vomiting, diarrhea, hematemesis, dizziness, shortness of breath, fever, chills. No other symptoms or modifying factors present at this time. Chief Complaint: Flank Pain Time Seen by MD: 16:05 Primary Care Provider: NONE Reviewed notes: Medications, Allergies Allergies: Coded Allergies: NO KNOWN ALLERGIES (Unverified , 09/13/24) Home Meds Active Scripts Nitrofurantoin Monohydrate Mac (Macrobid) 100 Mg Cap, 100 MG PO BID for 7 Days, #14 CAP Prov:NITA MONROE DO 03/28/25 Information Source: Patient Mode of Arrival: Ambulatory Severity: Moderate Timing: Weeks Duration: Since onset Prehospital treatment: None Onset: Spontaneous Symptoms: Other History of: Kidney stone Location: (L)Flank Penile discharge: None Modifying factors: None associated signs and symptoms: Flank Pain Past Medical History PAST MEDICAL HISTORY: Anxiety, Depression, Gout, Kidney Stones, Schizophrenia Surgical History: Denies all surgeries Family History Family History: Family hx of heart nick Social History Smoker: Cigarettes Alcohol: Occasionally Drugs: Marijuana, Methamphetamine Lives In: Home Constitutional: denies: chills, diaphoresis, fatigue, fever, malaise, sweats, weakness, others EENTM: denies: blurred vision, double vision, ear bleeding, ear discharge, ear drainage, ear pain, ear ringing, eye pain, eye redness, hearing loss, mouth pain, mouth swelling, nasal discharge, nose bleeding, nose congestion, nose pain, photophobia, tearing, throat pain, throat swelling, voice changes, others Respiratory: denies: cough, hemoptysis, orthopnea, SOB at rest, shortness of breath, SOB with excertion, stridor, wheezing, others Cardiovascular: denies: chest pain, dizzy spells, diaphoresis, Dyspnea on exertion, edema, irregular heart beat, left arm pain, lightheadedness, palpitations, PND, syncope, others Gastrointestinal: denies: abdomen distended, abdominal pain, blood streaked bowels, constipated, diarrhea, dysphagia, difficulty swallowing, hematemesis, melena, nausea, poor appetite, poor fluid intake, rectal bleeding, rectal pain, vomiting, others Genitourinary: reports: flank pain; denies: burning, dysuria, frequency, hematu nadine, incontinence, penile discharge, penile sore, pain, testicle pain, testicle swelling, urgency, others Neurological: denies: dizziness, fainting, headache, left sided numbness, left sided weakness, numbness, paresthesia, pre-existing deficit, right sided numbness, right sided weakness, seizure, speech problems, tingling, tremors, weakness, others Musculoskeletal: denies: back pain, gout, joint pain, joint swelling, muscle pain, muscle stiffness, neck pain, others Integumetry: denies: bruises, change in color, change in hair/nails, dryness, laceration, lesions, lumps, rash, wounds, others Allergic/Immunocompromised: denies: Difficulty Healing, Frequent Infections, Hives, Itching, others Hematologic/Lymphatic: denies: anemia, blood clots, easy bleeding, easy bruising, swollen glands, others Endocrine: denies: excessive hunger, excessive sweating, excessive thirst, excessive urination, flushing, intolerance to cold, intolerance to heat, unexplained weight gain, unexplained weight loss, others Psychiatric: denies: anxiety, bipolar disorder, depression, hopeless, panic disorder, schizophrenia, sleepless, suicidal, others All Other Systems: Reviewed and Negative Physical Exam General Appearance: Normal HEENT: Normal ENT Inspection, Pharynx Normal, TMs Normal Neck: Full Range of Motion, Non-Tender, Normal, Normal Inspection Respiratory: Chest Non-Tender, Lungs Clear, No Accessory Muscle Use, No Respiratory Distress, Normal Breath Sounds Cardiovascular: No Edema, No JVD, No Murmur, No Gallop, Normal Peripheral Pulses, Regular Rate/Rhythm Breast Exam: Deferred Gastrointestinal: No Organomegaly, Tenderness (LT CVA) Genitalia: Deferred Pelvic: Deferred Rectal: Deferred Extremities: No calf tenderness, Normal capillary refill, Normal inspection, Normal range of motion, Non-tender, No pedal edema Musculoskeletal : Apperance: Normal Neurologic: Alert, java groovy developer II-XII nml as Tested, No Motor Deficits, Normal Affect, Normal Mood, No Sensory Deficits Cerebellar Function: Normal Reflexes: Normal Skin: Dry, Normal Color, Warm Lymphatic: No Adenopathy Was a procedure done? Was a procedure done?: No Differential Diagnosis Kidney stone (Female): N/A Kidney stone (Male): Cholangitis, Pancreatitis, Pyelonephritis, Renal failure, Strain X-Ray, Labs, Meds, VS Vital Signs Date Time Temp Pulse Resp B/P (MAP) Pulse Ox O2 Delivery O2 Flow Rate FiO2 05/15/25 17:36 78 18 98 Room Air 05/15/25 17:36 85 18 124/73 (90) 97 05/15/25 15:54 98.2 96 16 131/69 98 98.2 Lab Test 05/15/25 17:39 05/15/25 16:23 Range/Units Urine Color Yellow Yellow Urine Clarity Clear Clear Urine pH 5.5 5.0-9.0 Urine Specific [place] 1.027 1.001-1.035 Urine Protein Negative Negative Urine Ketones Negative Negative Urine Blood Negative Negative /uL Urine Nitrite Negative Negative Urine Bilirubin Negative Negative Urine Urobilinogen Normal Negative mg/dL Urine Leukocyte Esterase Negative Negative /uL Urine RBC 1 0 - 3 /hpf Urine Microscopic WBC 1 0-3 /HPF Urine Squamous Epithelial Cells None seen <5 /hpf Urine Bacteria None seen None Seen /hpf Urine Mucus Few None Seen Urine Glucose Normal Normal mg/dL White Blood Count 10.6 4.4-10.8 10^3/uL Red Blood Count 4.46 L 4.5-5.90 10^6/uL Hemoglobin 12.6 L 13.5-17.5 g/dL Hematocrit 38.9 L 41.0-53.0 % Mean Corpuscular Volume 87.1 80.0-100.0 fL Mean Corpuscular Hemoglobin 28.3 28.0-32.0 pg Mean Corpuscular Hemoglobin Concent 32.5 32.0-36.0 g/dL Red Cell Distribution Width 14.8 H 11.8-14.3 % Platelet Count 444 140-450 10^3/uL Mean Platelet Volume 6.6 L 6.9-10.8 fL Neutrophils (%) (Auto) 73.7 37.0-80.0 % Lymphocytes (%) (Auto) 16.5 10.0-50.0 % Monocytes (%) (Auto) 6.7 0.0-12.0 % Eosinophils (%) (Auto) 2.2 0.0-7.0 % Basophils (%) (Auto) 0.9 0.0-2.0 % Neutrophils # (Auto) 7.8 1.6-8.6 10 ^3/uL Lymphocytes # (Auto) 1.7 0.4-5.4 10 ^3/uL Monocytes # (Auto) 0.7 0-1.3 10 ^3/uL Eosinophils # (Auto) 0.2 0-0.8 10 ^3/uL Basophils # (Auto) 0.1 0-0.2 10 ^3/uL Nucleated Red Blood Cells 0.0 % Sodium Level 147 H 136-145 mmol/L Potassium Level 3.7 3.5-5.1 mmol/L Chloride Level 110 H 98-107 mmol/L Carbon Dioxide Level 27 20-31 mmol/L Anion Gap 10 5-15 Blood Urea Nitrogen 10 9-23 mg/dL Creatinine 0.98 0.700-1.30 mg/dL Glomerular Filtration Rate Calc 101 >90 mL/min BUN/Creatinine Ratio 10.2 10.0-20.0 Serum Glucose 97 74-106 mg/dL Calcium Level 9.6 8.7-10.4 mg/dL [place] [id number] Ph: [phone] DIAGNOSTIC IMAGING Diagnostic Imaging Report : [id number] Signed PATIENT: NICOLETTE BUI ACCT: [id number] UNIT: [id number] : 1985 LOC: ER ROOM / BED: / AGE / SEX: 39 / M ADM STATUS: REG ER SERVICE [id number] ORDERING PHYSICIAN: GARFIELD COOPER PROCEDURE(s): ABPL - CT AB PEL WO CON-NO ORAL OR IV REASON: flakn pain ORDER NUMBER(s): [id number], ACCESSION NUMBER(s): [id number] Exam: CT CT AB PEL WO CON-NO ORAL OR IV History: flakn pain Comparison Study: US ABDOMEN LIMITED on DOS: 04/02/25, CT CT AB PEL WO CON-NO ORAL OR IV on DOS: 04/02/25, CT CT AB PEL WO CON-NO ORAL OR IV on DOS: 03/28/25 Technique: Multidetector spiral CT of the abdomen was performed from lung bases to pubic symphysis. Imaging was performed without IV contrast. Axial, coronal and sagittal multiplanar reformats were obtained from the axial data set by the technologist. Radiation dose : 1. Abdomen/Pelvis: CTDIvol 9.98 mGy, DLP 529.0 mGy*cm. Findings: Evaluation of solid organs is limited due to lack of intravenous contrast use. Lung Bases: Trace bilateral effusions Liver: The liver is normal in size. No focal lesions. Gallbladder and biliary Tree: Unremarkable Spleen: Unremarkable Pancreas: The pancreas is grossly normal in appearance. Adrenal Glands: Unremarkable Kidneys: Few small bilateral renal calculi measuring up to 3 mm. No hydronephrosis. Bladder: Grossly unremarkable for degree of distention. Bowel: The stomach is grossly normal in appearance. Small bowel and colon are normal in caliber and distribution. Normal appendix is visualized in the right lower quadrant without findings of appendicitis. Terminal ileum is mildly thickened no surrounding inflammatory changes. Ascites: Absent Lymphadenopathy: No mesenteric, retroperitoneal or periportal lymphadenopathy. Abdominal wall and Mesentery: Unremarkable. Vasculature: The visualized abdominal aorta is normal in size and caliber. Evaluation of abdominal and pelvic vessels is limited due to lack of intravenous contrast. Pelvic Organs: Unremarkable Musculoskeletal: No aggressive focal bony lesions, acute fractures or dislocation. IMPRESSION: No acute abdominal or pelvic findings. Bilateral nonobstructing renal calculi no hydronephrosis. Mild thickening of the terminal illium suspected. No surrounding inflammatory changes. Please correlate with any known history of inflammatory bowel disease. Radiation optimization: All CT scans at this facility use at least one of these dose optimization techniques: automated exposure control mA and/or kV adjustment per patient size (includes targeted exams where dose is matched to clinical indication) or iterative reconstruction. ATED BY: ELIJAH CORTEZ MD DICTATED DATE/TIME: 05/15/251705 SIGNED BY: ELIAJH CORTEZ MD SIGNED DATE/TIME: 05/15/251705 CC: X-Ray, Labs, Meds, VS Comment CT scan shows multiple kidney stones bilateral kidneys. Measuring approximately 3 mm. High success with passing these. Patient be started on Flomax and given pain medications Advised to follow up with PCP next available appointment. Return to the emergen cy department if symptoms worsen. Patient hemodynamically stable. Time of 1ST Reevaluation: 16:35 Reevaluation 1ST: Unchanged Patient Education/Counseling: Diagnosis, Treatment, Prognosis, Need For Follow Up (Follow up with PCP in the next 2-4 days. Return to the emergency department if symptoms worsen.) Family Education/Counseling: No Family Present SEPSIS Sepsis Screen Date sepsis recognized/suspect: May 15, 2025 Time Sepsis recognized/suspect: 1553 Recent Procedure: No On Antibiotic Therapy: No Respiratory Rate >20: No Heart Rate >90: No Temp<36 C (96.8 F) or >38.3 C: No SBP <90 or MAP <65 mmHG: No New Acute Mental Status Change: No Is the patient on CPAP, BIPAP,: No Physician Orders Ct Ab Pel Wo Con-No Oral Or Iv (05/15/25 16:17) Vital Signs Date Time Temp Pulse Resp B/P (MAP) Pulse Ox O2 Delivery O2 Flow Rate FiO2 05/15/25 17:36 78 18 98 Room Air 05/15/25 17:36 85 18 124/73 (90) 97 05/15/25 15:54 98.2 96 16 131/69 98 98.2 Laboratory Tests Test 05/15/25 16:23 White Blood Count 10.6 10^3/uL (4.4-10.8) Departure 1 Departure Time of Disposition: 18:30 Impression: Primary Impression: Flank pain Qualified Codes: R10.A3 - Flank pain, bilateral Additional Impression: Kidney stone Disposition: HOME / SELF CARE / HOMELESS Condition: Fair e-Prescriptions Ibuprofen Micronized (Ibuprofen) 800 Mg Tab 800 MG PO TID PRN, #40 TAB Prov: GARFIELD COOPER 05/15/25 Tamsulosin Hcl (Flomax) 0.4 Mg Cap 12 CAP PO DAILY, #30 CAP 11 Refills Prov: GARFIELD COOPER 05/15/25 Discharged With: Self Critical Care Note Critical Care Time?: No Stability Stability form required: No Heart Score Heart Score: Heart Score Response (Comments) Value History N/A 0 EKG N/A 0 Age N/A 0 Risk Factors N/A 0 Troponin N/A 0 Total 0 I personally scribed for GARFIELD COOPER ([email or web address]) on 05/15/25 at 16:17. Electronically submitted by Sabine Botello ([email or web address]). I personally scribed for GARFIELD COOPER ([email or web address]) on 05/15/25 at 17:46. Electronically submitted by Sabnie Botello ([email or web address]). GARFIELD COOPER May 15, 2025 16:17
[2025-05-15 16:33] LABS: Hematocrit 38.9 % (41.0-53.0); Hemoglobin 12.6 g/dL (13.5-17.5); Mean Corpuscular Hemoglobin 28.3 pg (28.0-32.0); Mean Corpuscular Volume 87.1 fL (80.0-100.0); Nucleated Red Blood Cells % 0.0 %
[2025-05-15 16:43] LABS: Potassium 3.7 mmol/L (3.5-5.1)
[2025-05-15 16:44] LABS: Anion Gap 10 (5-15); Calcium 9.6 mg/dL (8.7-10.4); Carbon Dioxide 27 mmol/L (20-31)
[2025-05-15 16:49] LABS: BUN/Creatinine Ratio 10.2 (10.0-20.0); Blood Urea Nitrogen 10 mg/dL (9-23); Glucose 97 mg/dL (74-106)
--- NOTE | 2025-05-15 17:09 | DVH ---
Exam: CT CT AB PEL WO CON-NO ORAL OR IV History: flakn pain Comparison Study: US ABDOMEN LIMITED on DOS: 04/02/25, CT CT AB PEL WO CON-NO ORAL OR IV on DOS: , CT CT AB PEL WO CON-NO ORAL OR IV on DOS: 03/28/25 Technique: Multidetector spiral CT of the abdomen was performed from lung bases to pubic symphysis. I maging was performed without IV contrast. Axial, coronal and sagittal multiplanar reformats were obta ined from the axial data set by the technologist. Radiation dose : 1. Abdomen/Pelvis: CTDIvol 9.98 mGy, DLP 529.0 mGy*cm. Findings: Evaluation of solid organs is limited due to lack of intravenous contrast use. Lung Bases: Trace bilateral effusions Liver: The liver is normal in size. No focal lesions. Gallbladder and biliary Tree: Unremarkable Spleen: Unremarkable Pancreas: The pancreas is grossly normal in appearance. Adrenal Glands: Unremarkable Kidneys: Few small bilateral renal calculi measuring up to 3 mm. No hydronephrosis. Bladder: Grossly unremarkable for degree of distention. Bowel: The stomach is grossly normal in appearance. Small bowel and colon are normal in caliber and d istribution. Normal appendix is visualized in the right lower quadrant without findings of appendicit is. Terminal ileum is mildly thickened no surrounding inflammatory changes. Ascites: Absent Lymphadenopathy: No mesenteric, retroperitoneal or periportal lymphadenopathy. Abdominal wall and Mesentery: Unremarkable. Vasculature: The visualized abdominal aorta is normal in size and caliber. Evaluation of abdominal a nd pelvic vessels is limited due to lack of intravenous contrast. Pelvic Organs: Unremarkable Musculoskeletal: No aggressive focal bony lesions, acute fractures or dislocation. IMPRESSION: No acute abdominal or pelvic findings. Bilateral nonobstructing renal calculi no hydronephrosis. Mild thickening of the terminal illium suspected. No surrounding inflammatory changes. Please correla te with any known history of inflammatory bowel disease. Radiation optimization: All CT scans at this facility use at least one of these dose optimization rowena hniques: automated exposure control mA and/or kV adjustment per patient size (includes targeted exam s where dose is matched to clinical indication) or iterative reconstruction.
[2025-05-15 17:36] VITALS: BP 124/73; PULSE 78; RESP 18; O2SAT 98
[2025-05-15 17:36] LABS: Chloride 110 mmol/L (98-107); Sodium 147 mmol/L (136-145)
[2025-05-15 18:02] LABS: Urine Protein, UAD Negative (Negative)
[2025-05-15] MEDS ORDERED: TAMS-35 PO (18:31)
[2025-05-15] MEDS ORDERED: IBUP-1455 PO (18:31)
== END 2025-05-15 18:40 | disposition home or self-care (01) ==
LOC: ER 15:52
DX: N20.0 Calculus of kidney (principal); F17.210 Nicotine dependence, cigarettes, uncomplicated; F20.9 Schizophrenia, unspecified; M10.9 Gout, unspecified; F41.9 Anxiety disorder, unspecified; F32.A Depression, unspecified
CPT/HCPCS: 36415; 74176; 80048; 81001; 85025

== ENCOUNTER 2025-06-14 06:22 | Inpatient (IN) | payer OTHER ==
[~2025-06-14] VITALS: Ht 167.6 cm; Wt 93.1 kg
[~2025-06-14 06:22] MED LIST changes: +IBUP-1455 PO; +TAMS-35 PO
--- NOTE | 2025-06-14 07:09 | ED.PDOC ---
General HPI Comments This is a 39 year old male presenting to the ED with chief complaint of flank pain. Patient reports that he has been experiencing bilateral flank pain with associated epigastric abdominal pain since 4am today. Patient relays that he has history of kidney stones 2 weeks ago, taking Flomax. Patient denies any N/V/D, dizziness, fever, chills, hematuria, or dysuria. Chief Complaint: Flank Pain Time Seen by MD: 07:06 Primary Care Provider: NONE Reviewed notes: Nurses Notes, Medications, Allergies Allergies: Coded Allergies: NO KNOWN ALLERGIES (Unverified , 09/13/24) Home Meds Active Scripts Tamsulosin Hcl (Flomax) 0.4 Mg Cap, 1 CAP PO DAILY for 12 Days, #12 CAP Prov:GARFIELD COOPER OPERATIONS SUPPORT MANAGER 05/15/25 Ibuprofen Micronized (Ibuprofen) 800 Mg Tab, 800 MG PO TID PRN, #40 TAB Prov:GARFIELD COOPERP 05/15/25 Nitrofurantoin Monohydrate Mac (Macrobid) 100 Mg Cap, 100 MG PO BID for 7 Days, #14 CAP Prov:NITA MONROE DO 03/28/25 Information Source: Patient Mode of Arrival: Ambulatory Severity: Moderate Timing: Hours Duration: Since onset Prehospital treatment: None History of: Kidney stone Location: Abdomen, (R) Flank, (L)Flank associated signs and symptoms: Abdominal Pain, Flank Pain Past Medical History PAST MEDICAL HISTORY: Anxiety, Depression, Gout, Kidney Stones, Schizophrenia Surgical History: Denies all surgeries Family History Family History: Reviewed,noncontributory to illness, Family hx of heart nick Social History Smoker: Cigarettes Alcohol: Occasionally Drugs: Marijuana, Methamphetamine Lives In: Home Constitutional: denies: chills, diaphoresis, fatigue, fever, malaise, sweats, weakness, others EENTM: denies: blurred vision, double vision, ear bleeding, ear discharge, ear drainage, ear pain, ear ringing, eye pain, eye redness, hearing loss, mouth pain, mouth swelling, nasal discharge, nose bleeding, nose congestion, nose pain, photophobia, tearing, throat pain, throat swelling, voice changes, others Respiratory: denies: cough, hemoptysis, orthopnea, SOB at rest, shortness of breath, SOB with excertion, stridor, wheezing, others Cardiovascular: denies: chest pain, dizzy spells, diaphoresis, Dyspnea on exertion, edema, irregular heart beat, left arm pain, lightheadedness, palpitations, PND, syncope, others Gastrointestinal: reports: abdominal pain; denies: abdomen distended, blood streaked bowels, constipated, diarrhea, dysphagia, difficulty swallowing, hematemesis, melena, nausea, poor appetite, poor fluid intake, rectal bleeding, rectal pain, vomiting, others Genitourinary: reports: flank pain; denies: burning, dysuria, frequency, hematuria, incontinence, penile discharge, penile sore, pain, testicle pain, testicle swelling, urgency, others Neurological: denies: dizziness, fainting, headache, left sided numbness, left sided weakness, numbness, paresthesia, pre-existing deficit, right sided numbness, right sided weakness, seizure, speech problems, tingling, tremors, weakness, others Musculoskeletal: denies: back pain, gout, joint pain, joint swelling, muscle pain, muscle stiffness, neck pain, others Integumetry: denies: bruises, change in color, change in hair/nails, dryness, laceration, lesions, lumps, rash, wounds, others Allergic/Immunocompromised: denies: Difficulty Healing, Frequent Infections, Hives, Itching, others Hematologic/Lymphatic: denies: anemia, blood clots, easy bleeding, easy bruising, swollen glands, others Endocrine: denies: excessive hunger, excessive sweating, excessive thirst, excessive urination, flushing, intolerance to cold, intolerance to heat, unexplained weight gain, unexplained weight loss, others Psychiatric: denies: anxiety, bipolar disorder, depression, hopeless, panic disorder, schizophrenia, sleepless, suicidal, others All Other Systems: Reviewed and Negative Physical Exam General Appearance: No Apparent Distress, Normal HEENT: Normal ENT Inspection, Pharynx Normal, TMs Normal Neck: Full Range of Motion, Non-Tender, Normal, Normal Inspection Respiratory: Chest Non-Tender, Lungs Clear, No Accessory Muscle Use, No Respiratory Distress, Normal Breath Sounds Cardiovascular: No Edema, No JVD, No Murmur, No Gallop, Normal Peripheral Pulses, Regular Rate/Rhythm Breast Exam: Deferred Gastrointestinal: No Organomegaly, No Pulsatile Mass, Normal Bowel Sounds, Soft, Tenderness (Epigastric tenderness) Genitalia: Deferred Pelvic: Deferred Rectal: Deferred Extremities: No calf tenderness, Normal capillary refill, Normal inspection, Normal range of motion, Non-tender, No pedal edema Musculoskeletal : Location: Bilateral Apperance: Normal, Tenderness (Bilateral flank tenderness) Neurologic: Alert, staff counsel II-XII nml as Tested, No Motor Deficits, Normal Affect, Normal Mood, No Sensory Deficits Cerebellar Function: Normal Reflexes: Normal Skin: Dry, Normal Color, Warm Lymphatic: No Adenopathy Was a procedure done? Was a procedure done?: No Differential Diagnosis Kidney stone (Female): N/A Kidney stone (Male): N/A Penile/Scrotal: N/A Urinary Problem (Male): Epididymitis, Renal Failure, Urethritis Urinary Problem (Female): N/A Other Differential Diagnosis Cholecystitis X-Ray, Labs, Meds, VS Vital Signs Date Time Temp Pulse Resp B/P (MAP) Pulse Ox O2 Delivery O2 Flow Rate FiO2 06/14/25 14:07 93 17 133/73 06/14/25 13:36 71 17 95 Room Air* 0 21 06/14/25 13:35 97 Room Air* 0 21 06/14/25 13:33 98.3 58 17 139/89 (106) 98 98.3 06/14/25 06:23 98.1 61 18 128/95 98 98.1 Lab Test 06/14/25 13:41 06/14/25 09:00 06/14/25 07:04 Range/Units Prothrombin Time 10.7 9.3-11.8 sec Prothrombin Time INR 1.01 0.9-1.15 Activated Partial Thromboplast Time 26.7 24.5-34.5 SEC Lactic Acid Level 0.9 0.4-2.0 mmol/L Urine Color Light-yellow Yellow Urine Clarity Clear Clear Urine pH 5.5 5.0-9.0 Urine Specific [place] 1.027 1.001-1.035 Urine Protein Negative Negative Urine Ketones Negative Negative Urine Blood Negative Negative /uL Urine Nitrite Negative Negative Urine Bilirubin Negative Negative Urine Urobilinogen Normal Negative mg/dL Urine Leukocyte Esterase Negative Negative /uL Urine RBC 1 0 - 3 /hpf Urine Microscopic WBC 1 0-3 /HPF Urine Squamous Epithelial Cells Few <5 /hpf Urine Bacteria None seen None Seen /hpf Urine Mucus Few None Seen Urine Glucose Normal Normal mg/dL White Blood Count 11.9 H 4.4-10.8 10^3/uL Red Blood Count 4.41 L 4.5-5.90 10^6/uL Hemoglobin 12.3 L 13.5-17.5 g/dL Hematocrit 38.2 L 41.0-53.0 % Mean Corpuscular Volume 86.6 80.0-100.0 fL Mean Corpuscular Hemoglobin 27.8 L 28.0-32.0 pg Mean Corpuscular Hemoglobin Concent 32.1 32.0-36.0 g/dL Red Cell Distribution Width 14.4 H 11.8-14.3 % Platelet Count 436 140-450 10^3/uL Mean Platelet Volume 6.5 L 6.9-10.8 fL Neutrophils (%) (Auto) 76.4 37.0-80.0 % Lymphocytes (%) (Auto) 14.7 10.0-50.0 % Monocytes (%) (Auto) 7.0 0.0-12.0 % Eosinophils (%) (Auto) 1.2 0.0-7.0 % Basophils (%) (Auto) 0.7 0.0-2.0 % Neutrophils # (Auto) 9.1 H 1.6-8.6 10 ^3/uL Lymphocytes # (Auto) 1.8 0.4-5.4 10 ^3/uL Monocytes # (Auto) 0.8 0-1.3 10 ^3/uL Eosinophils # (Auto) 0.1 0-0.8 10 ^3/uL Basophils # (Auto) 0.1 0-0.2 10 ^3/uL Nucleated Red Blood Cells 0.0 % Sodium Level 146 H 136-145 mmol/L Potassium Level 3.8 3.5-5.1 mmol/L Chloride Level 110 H 98-107 mmol/L Carbon Dioxide Level 26 20-31 mmol/L Anion Gap 10 5-15 Blood Urea Nitrogen 11 9-23 mg/dL Creatinine 1.04 0.700-1.30 mg/dL Glomerular Filtration Rate Calc 94 >90 mL/min BUN/Creatinine Ratio 10.6 10.0-20.0 Serum Glucose 96 74-106 mg/dL Calcium Level 9.3 8.7-10.4 mg/dL Total Bilirubin 0.4 0.2-1.0 mg/dL Aspartate Amino Transferase (AST) 13 13-40 U/L Alanine Aminotransferase (ALT) 14 7-40 U/L Alkaline Phosphatase 125 H 46-116 U/L Total Protein 7.5 5.7-8.2 g/dL Albumin 4.3 3.2-4.8 g/dL Lipase 68 H 12-53 U/L Microbiology Date/Time Source Procedure Growth Status 06/14/25 13:44 Blood Blood Culture - Preliminary NO GROWTH AFTER 72 HOURS OF INCUBATION. Resulted 06/14/25 13:41 Blood Blood Culture - Preliminary NO GROWTH AFTER 72 HOURS OF INCUBATION. Resulted Time of 1ST Reevaluation: 07:55 Reevaluation 1ST: Improved Patient Education/Counseling: Diagnosis, Treatment Family Education/Counseling: No Family Present SEPSIS Sepsis Screen Date sepsis recognized/suspect: Jun 14, 2025 Time Sepsis recognized/suspect: 627 Recent Procedure: No On Antibiotic Therapy: No Respiratory Rate >20: No Heart Rate >90: No Temp<36 C (96.8 F) or >38.3 C: No SBP <90 or MAP <65 mmHG: No New Acute Mental Status Change: No Is the patient on CPAP, BIPAP,: No Physician Orders Ct Ab Pel Wo Con-No Oral Or Iv (06/14/25 10:44) Blood Culture (06/14/25 12:22) Abdomen Complete Sonogram (06/14/25 12:21) Vital Signs Date Time Temp Pulse Resp B/P (MAP) Pulse Ox O2 Delivery O2 Flow Rate FiO2 06/14/25 14:07 93 17 133/73 06/14/25 13:36 71 17 95 Room Air* 0 21 06/14/25 13:35 97 Room Air* 0 21 06/14/25 13:33 98.3 58 17 139/89 (106) 98 98.3 06/14/25 06:23 98.1 61 18 128/95 98 98.1 Laboratory Tests Test 06/14/25 07:04 06/14/25 13:41 White Blood Count 11.9 10^3/uL (4.4-10.8) H Lactic Acid Level 0.9 mmol/L (0.4-2.0) Departure 1 Departure Time of Disposition: 06:42 (Patient presented with abdominal pain that was concerning for possible appendicits, gastritis, cholecystitis, colitis, gastroenteritis, sbo, or orther possible surgical emergency. Data: 1. I ordered and reviewed the result of at least 3 labs including a CBC, BMP, and Urinalysis. 2. I independently interpreted the following tests: CT Abdomen and Pelvis is concerning for acute cholecystitis .Risk:This patient has a high risk of morbidity due to further diagnostic testing or treatment and may suffer from an acute abdominal process disorder. Workup reveals acute cholecystitis and patient should be admitted for further workup. and possible expert consultation. ) Impression: Primary Impression: Acute cholecystitis Additional Impression: Intractable abdominal pain Disposition: ADMITTED INPATIENT Admit to: Med Surg Condition: Guarded Critical Care Note Critical Care Time?: Yes Critical care comment: Intractable abdominal pain Authorized and Performed by: Jimmy Miller MD Total critical care time: Approximately 37 minutes Due to a high probability of clinically significant, life threatening deterioration, the patient required my highest level of preparedness to intervene emergently and I personally spent this critical care time directly and personally managing the patient. This critical care time included obtaining a history; examining the patient; pulse oximetry; ordering and review of studies; arranging urgent treatment with development of a management plan; evaluation of patient's response to treatment; frequent reassessment; and, discussions with other providers. This critical care time was performed to assess and manage the high probability of imminent, life-threatening deterioration that could result in multi-organ failure. It was exclusive of separately billable procedures and treating other patients and teaching time. Please see my other sections and the rest of the note for further information on patient assessment and treatment. Stability Stability form required: No Heart Score Heart Score: Heart Score Response (Comments) Value History N/A 0 EKG N/A 0 Age N/A 0 Risk Factors N/A 0 Troponin N/A 0 Total 0 I personally scribed for JIMMY MILLER MD ([email or web address]) on 06/14/25 at 07:09. Electronically submitted by Giancarlo Encinas ([email or web address]). JIMMY MILLER MD Jun 14, 2025 07:09
[2025-06-14 07:27] LABS: Hematocrit 38.2 % (41.0-53.0); Hemoglobin 12.3 g/dL (13.5-17.5); Mean Corpuscular Hemoglobin 27.8 pg (28.0-32.0); Mean Corpuscular Volume 86.6 fL (80.0-100.0); Nucleated Red Blood Cells % 0.0 %
[2025-06-14 07:43] LABS: Alanine Aminotransferase 14 U/L (7-40); Albumin 4.3 g/dL (3.2-4.8); Anion Gap 10 (5-15); BUN/Creatinine Ratio 10.6 (10.0-20.0); Bilirubin, Total 0.4 mg/dL (0.2-1.0); Blood Urea Nitrogen 11 mg/dL (9-23); Calcium 9.3 mg/dL (8.7-10.4); Carbon Dioxide 26 mmol/L (20-31); Glucose 96 mg/dL (74-106); Potassium 3.8 mmol/L (3.5-5.1); Total Protein 7.5 g/dL (5.7-8.2)
[2025-06-14 07:44] LABS: Alkaline Phosphatase 125 U/L (46-116); Chloride 110 mmol/L (98-107); Sodium 146 mmol/L (136-145)
[2025-06-14] MEDS: MAALOX PLUS or MAALOX 30 ML PO ONE (08:28)
[2025-06-14] MEDS: PANTOPRAZOLE 40 MG/10 ML VIAL INJ IV ONE (08:28)
[2025-06-14] MEDS: ONDANSETRON HCL 4 MG/2 ML VIAL IV ONE ×2 (08:28→14:07)
[2025-06-14] MEDS: SODIUM CHLORIDE 0.9% 1,000 ML IV ONE (08:29)
[2025-06-14 09:21] LABS: Urine Protein, UAD Negative (Negative)
[2025-06-14 09:24] LABS: Lipase 68 U/L (12-53)
--- NOTE | 2025-06-14 11:38 | DVH ---
Exam: CT CT AB PEL WO CON-NO ORAL OR IV History: Abdominal pain. Comparison Study: CT CT AB PEL WO CON-NO ORAL OR IV on DOS: 05/15/25 Technique: Multidetector spiral CT of the abdomen and pelvis was performed from lung bases to pubic symphysis. Imaging was performed without intravenous contrast. Coronal and sagittal multiplanar reformats were obtained from the axial data set by the technologist. Radiation Dose : 1. Abdomen/Pelvis: CTDIvol 15.91 mGy, DLP 952.45 mGy*cm. Findings: Evaluation of vasculature and solid organs is limited due to lack of intravenous contrast use. Lung Bases: Lung bases are clear. Visualized portions of the heart and pericardium are unremarkable. Liver: The liver is normal in size. No focal lesions. Gallbladder and Biliary Tree: The gallbladder is distended with marked gallbladder wall edema and there is pericholecystic fat stranding. No calcified gallstones identified Spleen: Unremarkable Pancreas: The pancreas is grossly unremarkable. Adrenal Glands: Unremarkable. Kidneys: Punctate bilateral nephrolithiasis noted measuring 2 mm in the right kidney and 3 mm in the left kidney. No hydronephrosis. GI tract: The stomach is grossly normal in appearance. No evidence of small bowel wall thickening or abnormal dilatation to suggest bowel obstruction. The colon is unremarkable. The appendix is visualized and is normal. Peritoneum/mesentery/retroperitoneum. No evidence of free intraperitoneal air. No ascites. No evidence of suspicious lymphadenopathy. Abdominal Wall: Unremarkable. Vasculature: The visualized abdominal aorta is normal in size and caliber. Evaluation of abdominal and pelvic vessels is limited due to lack of intravenous contrast. Urinary Bladder: Grossly unremarkable for degree of distention. Pelvic Organs: Unremarkable Musculoskeletal: No aggressive focal bony lesions, acute fractures or dislocation. IMPRESSION: 1. Interval development of marked gallbladder wall edema and mild pericholecystic fat stranding. Right upper quadrant ultrasound is recommended. Acute cholecystitis can have this appearance. 2. Bilateral nonobstructive nephrolithiasis.
[2025-06-14 13:36] VITALS: PULSE 71; RESP 17; O2SAT 95
--- NOTE | 2025-06-14 14:04 | DVH ---
INDICATION: ruq pain / BILAT RENAL STONES TECHNIQUE: Multiple real-time sonographic images of the abdomen were obtained. COMPARISON: None FINDINGS: The liver is homogenous in echogenicity. The liver measures 14.8 cm. No intrahepatic biliary ductal dilatation is noted. The gallbladder wall measures 1.31 cm and is thickened. No gallstones or sludge is seen. The common duct measures 0.26 cm and is unremarkable. No pericholecystic fluid is noted. Positive sonographic Aburto's sign The right kidney measures 11.1 cm. No hydronephrosis. The left kidney measures 11.6 cm. No hydronephrosis. Echogenic foci in the midpole of both kidneys without hydronephrosis. May represent nonobstructing calculi. The spleen measures 9.9 cm, within normal limits. The echogenicity is within normal limits. The pancreas is obscured by bowel gas The visualized portions of the IVC and aorta are grossly unremarkable. Abdominal aorta measures 1.1 cm in the IVC is normal. IMPRESSION: 1. Thickened gallbladder wall (1.31 cm) with a positive sonographic Aburto's sign. 2. 11.1 cm long right kidney with nonobstructing calculi midpole. 3. 11.6 cm long left kidney with nonobstructing calculi midpole.
[2025-06-14] MEDS: ceFAZolin 2 GM/D5W50ml 50 ML IV ONE (14:06)
[2025-06-14] MEDS: MORPHINE SULFATE 4 MG/ML SYR/VIAL IV ONE (14:07)
--- NOTE | 2025-06-14 15:10 | DVHHP2 ---
History of Present Illness Reason for Visit: Abdominal pain History of Present Illness 39-year-old male presents for evaluation of abdominal pain. Patient endorses developing sharp epigastric abdominal pain at three in the morning. He states the pain radiating to his right upper quadrant. Currently he reports bilateral flank pain. He states the pain becomes worse when he eats fatty foods. Currently denies nausea or vomiting. No fever or chills. No diarrhea. Past Medical History Kidney stones, schizophrenia, gout Past Surgical History Denies Family History Noncontributory Smoke: <1 pack per day ALCOHOL: occassional Drugs: Marijuana, Other (Methamphetamine) Review of Systems Review of Systems Review of systems are currently negative otherwise addressed in HPI. Allergies: Coded Allergies: NO KNOWN ALLERGIES (Unverified , 09/13/24) Exam Vital Signs Vital Signs Date Time Temp Pulse Resp B/P (MAP) Pulse Ox O2 Delivery O2 Flow Rate FiO2 06/14/25 14:07 93 17 133/73 06/14/25 13:36 95 Room Air* 0 21 06/14/25 13:33 98.3 98.3 Exam Gen: 39-year-old male in mild distress. Skin: Warm, dry, normal color and texture, no rash. HEENT: Normocephalic atraumatic, mucous membranes moist and pink. Neck: Cervical and supraclavicular nodes normal without enlargement, trachea is midline, thyroid gland is normal without masses. Pulmonary: Clear to auscultation and percussion bilaterally. Cardiac: Regular rate and rhythm. No murmur Abdomen: Soft, bilateral flank -right upper quadrant tenderness, nondistended, bowel sounds present all 4 quadrants, no guarding, no rigidity, no organomegaly. Extremities: No cyanosis, clubbing, no edema Neuro: Cranial nerves II through XII grossly intact, normal affect and speech, no focal motor deficits. Labs/Xrays ORDERING PHYSICIAN: JIMMY MILLER MD PROCEDURE(s): ABPL - CT AB PEL WO CON-NO ORAL OR IV REASON: abdominal pain ORDER NUMBER(s): [id number], ACCESSION NUMBER(s): [id number] Exam: CT CT AB PEL WO CON-NO ORAL OR IV History: Abdominal pain. Comparison Study: CT CT AB PEL WO CON-NO ORAL OR IV on DOS: 05/15/25 Technique: Multidetector spiral CT of the abdomen and pelvis was performed from lung bases to pubic symphysis. Imaging was performed without intravenous contrast. Coronal and sagittal multiplanar reformats were obtained from the axial data set by the technologist. Radiation Dose : 1. Abdomen/Pelvis: CTDIvol 15.91 mGy, DLP 952.45 mGy*cm. Findings: Evaluation of vasculature and solid organs is limited due to lack of intravenous contrast use. Lung Bases: Lung bases are clear. Visualized portions of the heart and pericardium are unremarkable. Liver: The liver is normal in size. No focal lesions. Gallbladder and Biliary Tree: The gallbladder is distended with marked gallbladder wall edema and there is pericholecystic fat stranding. No calcified gallstones identified Spleen: Unremarkable Pancreas: The pancreas is grossly unremarkable. Adrenal Glands: Unremarkable. Kidneys: Punctate bilateral nephrolithiasis noted measuring 2 mm in the right kidney and 3 mm in the left kidney. No hydronephrosis. GI tract: The stomach is grossly normal in appearance. No evidence of small bowel wall thickening or abnormal dilatation to suggest bowel obstruction. The colon is unremarkable. The appendix is visualized and is normal. Peritoneum/mesentery/retroperitoneum. No evidence of free intraperitoneal air. No ascites. No evidence of suspicious lymphadenopathy. Abdominal Wall: Unremarkable. Vasculature: The visualized abdominal aorta is normal in size and caliber. Evaluation of abdominal and pelvic vessels is limited due to lack of intravenous contrast. Urinary Bladder: Grossly unremarkable for degree of distention. Pelvic Organs: Unremarkable Musculoskeletal: No aggressive focal bony lesions, acute fractures or dislocation. IMPRESSION: 1. Interval development of marked gallbladder wall edema and mild pericholecystic fat stranding. Right upper quadrant ultrasound is recommended. Acute cholecystitis can have this appearance. 2. Bilateral nonobstructive nephrolithiasis. RING PHYSICIAN: JIMMY MILLER MD PROCEDURE(s): ABDC - ABDOMEN COMPLETE SONOGRAM REASON: ruq pain / BILAT RENAL STONES ORDER NUMBER(s): [id number], ACCESSION NUMBER(s): [id number] INDICATION: ruq pain / BILAT RENAL STONES TECHNIQUE: Multiple real-time sonographic images of the abdomen were obtained. COMPARISON: None FINDINGS: The liver is homogenous in echogenicity. The liver measures 14.8 cm. No intrahepatic biliary ductal dilatation is noted. The gallbladder wall measures 1.31 cm and is thickened. No gallstones or sludge is seen. The common duct measures 0.26 cm and is unremarkable. No pericholecystic fluid is noted. Positive sonographic Aburto's sign The right kidney measures 11.1 cm. No hydronephrosis. The left kidney measures 11.6 cm. No hydronephrosis. Echogenic foci in the midpole of both kidneys without hydronephrosis. May represent nonobstructing calculi. The spleen measures 9.9 cm, within normal limits. The echogenicity is within normal limits. The pancreas is obscured by bowel gas The visualized portions of the IVC and aorta are grossly unremarkable. Abdominal aorta measures 1.1 cm in the IVC is normal. IMPRESSION: 1. Thickened gallbladder wall (1.31 cm) with a positive sonographic Aburto's sign. 2. 11.1 cm long right kidney with nonobstructing calculi midpole. 3. 11.6 cm long left kidney with nonobstructing calculi midpole. Labs Test 06/14/25 13:41 06/14/25 09:00 06/14/25 07:04 Range/Units Lactic Acid Level 0.9 0.4-2.0 mmol/L Urine Color Light-yellow Yellow Urine Clarity Clear Clear Urine pH 5.5 5.0-9.0 Urine Specific [place] 1.027 1.001-1.035 Urine Protein Negative Negative Urine Ketones Negative Negative Urine Blood Negative Negative /uL Urine Nitrite Negative Negative Urine Bilirubin Negative Negative Urine Urobilinogen Normal Negative mg/dL Urine Leukocyte Esterase Negative Negative /uL Urine RBC 1 0 - 3 /hpf Urine Microscopic WBC 1 0-3 /HPF Urine Squamous Epithelial Cells Few <5 /hpf Urine Bacteria None seen None Seen /hpf Urine Mucus Few None Seen Urine Glucose Normal Normal mg/dL White Blood Count 11.9 H 4.4-10.8 10^3/uL Red Blood Count 4.41 L 4.5-5.90 10^6/uL Hemoglobin 12.3 L 13.5-17.5 g/dL Hematocrit 38.2 L 41.0-53.0 % Mean Corpuscular Volume 86.6 80.0-100.0 fL Mean Corpuscular Hemoglobin 27.8 L 28.0-32.0 pg Mean Corpuscular Hemoglobin Concent 32.1 32.0-36.0 g/dL Red Cell Distribution Width 14.4 H 11.8-14.3 % Platelet Count 436 140-450 10^3/uL Mean Platelet Volume 6.5 L 6.9-10.8 fL Neutrophils (%) (Auto) 76.4 37.0-80.0 % Lymphocytes (%) (Auto) 14.7 10.0-50.0 % Monocytes (%) (Auto) 7.0 0.0-12.0 % Eosinophils (%) (Auto) 1.2 0.0-7.0 % Basophils (%) (Auto) 0.7 0.0-2.0 % Neutrophils # (Auto) 9.1 H 1.6-8.6 10 ^3/uL Lymphocytes # (Auto) 1.8 0.4-5.4 10 ^3/uL Monocytes # (Auto) 0.8 0-1.3 10 ^3/uL Eosinophils # (Auto) 0.1 0-0.8 10 ^3/uL Basophils # (Auto) 0.1 0-0.2 10 ^3/uL Nucleated Red Blood Cells 0.0 % Sodium Level 146 H 136-145 mmol/L Potassium Level 3.8 3.5-5.1 mmol/L Chloride Level 110 H 98-107 mmol/L Carbon Dioxide Level 26 20-31 mmol/L Anion Gap 10 5-15 Blood Urea Nitrogen 11 9-23 mg/dL Creatinine 1.04 0.700-1.30 mg/dL Glomerular Filtration Rate Calc 94 >90 mL/min BUN/Creatinine Ratio 10.6 10.0-20.0 Serum Glucose 96 74-106 mg/dL Calcium Level 9.3 8.7-10.4 mg/dL Total Bilirubin 0.4 0.2-1.0 mg/dL Aspartate Amino Transferase (AST) 13 13-40 U/L Alanine Aminotransferase (ALT) 14 7-40 U/L Alkaline Phosphatase 125 H 46-116 U/L Total Protein 7.5 5.7-8.2 g/dL Albumin 4.3 3.2-4.8 g/dL Lipase 68 H 12-53 U/L SEPSIS Sepsis Screen Date sepsis recognized/suspect: Jun 14, 2025 Time Sepsis recognized/suspect: 1340 Recent Procedure: No On Antibiotic Therapy: No Respiratory Rate >20: No Heart Rate >90: No Temp<36 C (96.8 F) or >38.3 C: No SBP <90 or MAP <65 mmHG: No New Acute Mental Status Change: No Is the patient on CPAP, BIPAP,: No Physician Orders Ct Ab Pel Wo Con-No Oral Or Iv (06/14/25 10:44) Blood Culture (06/14/25 12:22) Abdomen Complete Sonogram (06/14/25 12:21) D5w/Sod Chlo 0.9% Ns (06/14/25 15:15) Type And Screen (06/14/25 15:02) PTPTT (06/14/25 15:02) * Surgical Consult (06/14/25 ) Ceftriaxone Ivpb Rocephin (06/15/25 09:00) Metronidazole Ivpb Flagyl (06/14/25 22:00) Pantoprazole (Protonix) (06/15/25 10:00) Basic Metabolic Panel (06/15/25 04:00) Admit (06/14/25 15:02) Ondansetron Hcl (Zofran) (06/14/25 15:15) Complete Blood Count (06/15/25 04:00) Npo (Nothing By Mouth) Diet (06/14/25 Dinner) Condition: Stable (06/14/25 15:02) Bedrest With Bathroom Privileg (06/14/25 15:02) Morphine Sulfate Injection (06/14/25 15:15) Vital Signs Date Time Temp Pulse Resp B/P (MAP) Pulse Ox O2 Delivery O2 Flow Rate FiO2 06/14/25 14:07 93 17 133/73 06/14/25 13:36 71 17 95 Room Air* 0 21 06/14/25 13:35 97 Room Air* 0 21 06/14/25 13:33 98.3 58 17 139/89 (106) 98 98.3 Laboratory Tests Test 06/14/25 07:04 06/14/25 13:41 White Blood Count 11.9 10^3/uL (4.4-10.8) H Lactic Acid Level 0.9 mmol/L (0.4-2.0) Medications Medications Dose Ordered Sig/Lisette Route Start Time Stop Time Status Last Admin Dose Admin Al Hydrox/Mg Hydrox/Simethicone 15 ml ONCE ONCE PO 06/14/25 07:00 06/14/25 07:01 DC 06/14/25 08:28 15 ML Cefazolin Sodium/ Dextrose 50 ml @ 50 mls/hr ONCE ONCE IV 06/14/25 12:30 06/14/25 13:29 DC 06/14/25 14:06 50 MLS/HR Metronidazole 100 ml @ 100 mls/hr ONCE ONCE IV 06/14/25 12:30 06/14/25 13:29 DC 06/14/25 14:07 100 MLS/HR Morphine Sulfate 4 mg ONCE ONCE IV 06/14/25 12:30 06/14/25 13:04 DC 06/14/25 14:07 4 MG Ondansetron HCl 4 mg ONCE ONCE IV 06/14/25 07:00 06/14/25 07:01 DC 06/14/25 08:28 4 MG Ondansetron HCl 4 mg ONCE ONCE IV 06/14/25 12:30 06/14/25 13:04 DC 06/14/25 14:07 4 MG Pantoprazole Sodium 40 mg ONCE ONCE IV 06/14/25 07:00 06/14/25 07:01 DC 06/14/25 08:28 40 MG Sodium Chloride 1,000 ml @ 1,000 mls/hr Q1H ONCE IV 06/14/25 07:00 06/14/25 07:59 DC 06/14/25 08:29 1,000 MLS/HR Assessment/Plan Assessment/Plan Assessment Acute abdominal pain Rule out acute cholecystitis Leukocytosis Plan Admit the patient to [facility] to the hospitalist Surgical consultation Rocephin/Flagyl Maintenance IV fluids Pain management Continue treatment per orders. Plan discussed with: Patient My Orders Orders - VERONICA ADAMES AGACNP Procedure Category Date Status Time D5w/Sod Chlo 0.9% Ns PHA 06/14/25 Transmitted 15:15 Type And Screen BBK 06/14/25 Transmitted 15:02 PTPTT LAB 06/14/25 Transmitted 15:02 * Surgical Consult CONS 06/14/25 Transmitted Ceftriaxone Ivpb PHA 06/15/25 Transmitted Rocephin 09:00 Metronidazole Ivpb PHA 06/14/25 Transmitted Flagyl 22:00 Pantoprazole PHA 06/15/25 Transmitted (Protonix) 10:00 Basic Metabolic Panel LAB 06/15/25 Verified 04:00 Admit ADMIT 06/14/25 Transmitted 15:02 Ondansetron Hcl PHA 06/14/25 Transmitted (Zofran) 15:15 Complete Blood Count LAB 06/15/25 Verified 04:00 Npo (Nothing By DIET 06/14/25 Transmitted Mouth) Diet Dinner Condition: Stable MITRA 06/14/25 Transmitted 15:02 Bedrest With Bathroom MITRA 06/14/25 Transmitted Privileg 15:02 Morphine Sulfate PHA 06/14/25 Transmitted Injection 15:15 Date of Service: Jun 14, 2025 Billing Provider: VERONICA ADAMES Common Visit Codes: [id number] INP/OBS CARE (MOD) VERONICA ADAMES Jun 14, 2025 15:10
[2025-06-14] MEDS ORDERED: ONDANSETRON HCL 4 MG/2 ML VIAL IV PRN (15:15)
[2025-06-14] MEDS: D5W/SOD CHLO 0.9% 1,000 ML IV ONE (15:15)
[2025-06-14] MEDS ORDERED: MORPHINE SULFATE INJ 2 MG/ml SYRG IV PRN (15:15)
[2025-06-14 15:40] LABS: INR 1.01 (0.9-1.15); Partial Thromboplastin Time 26.7 SEC (24.5-34.5); Prothrombin Time 10.7 sec (9.3-11.8)
[2025-06-14 16:12] VITALS: BP 118/85; PULSE 64; RESP 18; TEMP 97.9; O2SAT 97; O2SAT 99
[2025-06-14 17:00] VITALS: BP 118/85; PULSE 64; RESP 18; TEMP 97.9; O2SAT 99
[2025-06-14 17:32] VITALS: PULSE 62; RESP 16; O2SAT 98
[2025-06-15 01:00] VITALS: BP 107/70; PULSE 68; RESP 18; TEMP 98.1; O2SAT 96
[2025-06-15 05:00] VITALS: BP 105/71; PULSE 55; RESP 14; TEMP 97.9; O2SAT 98
[2025-06-15 07:09] LABS: Hematocrit 33.5 % (41.0-53.0); Hemoglobin 10.7 g/dL (13.5-17.5); Mean Corpuscular Hemoglobin 27.8 pg (28.0-32.0); Mean Corpuscular Volume 86.6 fL (80.0-100.0); Nucleated Red Blood Cells % 0.1 %
[2025-06-15 07:18] LABS: Potassium 3.8 mmol/L (3.5-5.1)
[2025-06-15 07:19] LABS: Anion Gap 8 (5-15); Carbon Dioxide 27 mmol/L (20-31)
[2025-06-15 07:24] LABS: BUN/Creatinine Ratio 10.1 (10.0-20.0); Blood Urea Nitrogen 9 mg/dL (9-23); Glucose 83 mg/dL (74-106)
[2025-06-15 07:27] LABS: Calcium 8.6 mg/dL (8.7-10.4); Chloride 111 mmol/L (98-107); Sodium 146 mmol/L (136-145)
[2025-06-15] MEDS: PANTOPRAZOLE 40 MG/10 ML VIAL INJ IV SCH (08:41)
[2025-06-15 09:08] VITALS: BP 109/75; PULSE 83; RESP 17; TEMP 97.6; O2SAT 100
[2025-06-15 10:40] LABS: Hepatitis B Surface Antigen Negative (Negative)
[2025-06-15 11:06] LABS: Hepatitis C Antibody Negative (Negative)
--- NOTE | 2025-06-15 11:54 | DVHPN2 ---
Progress Note Date Seen: Jun 15, 2025 Medical Necessity Reason Pt with a Central, PICC or Fol: No Subjective Patient reports: No new complaints (Patient says that right upper quadrant pain has improved after taking pain medication and antibiotics) Changes from previous H/P or p: Changes (Pain has improved) Objective vital signs Vital Sign Date Time Temp Pulse Resp B/P (MAP) Pulse Ox O2 Delivery O2 Flow Rate FiO2 06/15/25 09:08 97.6 83 17 109/75 (86) 100 97.6 06/15/25 08:00 Room Air* 0 21 Total Intake and Output 06/14/25 06/14/25 06/15/25 15:00 23:00 07:00 Intake Total 0 ml 100 ml Balance 0 ml 100 ml medications Current Medications Medications Dose Ordered Sig/Lisette Route Start Time Stop Time Status Last Admin Dose Admin Ceftriaxone Sodium 50 ml @ 100 mls/hr DAILY@09 IV 06/15/25 09:00 06/15/25 08:41 100 MLS/HR Metronidazole 100 ml @ 100 mls/hr Q8HR IV 06/14/25 22:00 06/15/25 05:25 100 MLS/HR Pantoprazole Sodium 40 mg DAILY IV 06/15/25 10:00 06/15/25 08:41 40 MG Ondansetron HCl 4 mg Q4HP PRN IV 06/14/25 15:15 Morphine Sulfate 2 mg Q4HPRN PRN IV 06/14/25 15:15 Examination: GENERAL:Normal, HEENT:Normal, NECK:Normal, LUNGS:Normal, CVS:Normal, ABDOMEN:Abnormal (Mild tender right upper quadrant), MSK:Normal, SKIN:Normal, NEURO:Normal laboratory and microbiology Laboratory Tests 06/15/25 06:02 Test 06/15/25 06:02 Range/Units Serum Glucose 83 74-106 mg/dL Labs and/or images reviewed: Labs reviewed by me, Image(s) reviewed by me Problem List/Assessment/Plan Problem List/Assessment/Plan Acute abdominal pain Rule out acute cholecystitis Leukocytosis Plan Surgery consulted for acute cholecystitis Rocephin/Flagyl for IV antibiotics Maintenance IV fluids Pain management Continue treatment per orders. NPO for possible procedure. If not having procedure start clear liquid diet SCD for DVT prophylaxis Plan discussed with: Patient Date of Service: Jun 15, 2025 Billing Provider: HANANE ABDI MD Common Visit Codes: [id number] SAME DATE (HIGH) HANANE ABDI MD Jun 15, 2025 11:54
[2025-06-15 13:00] VITALS: BP 112/76; PULSE 66; RESP 18; TEMP 98.9; O2SAT 97
[2025-06-15 13:25] LABS: Anion Gap 7 (5-15); Carbon Dioxide 29 mmol/L (20-31); Potassium 4.3 mmol/L (3.5-5.1)
[2025-06-15 13:26] LABS: Calcium 9.1 mg/dL (8.7-10.4); Chloride 110 mmol/L (98-107); Sodium 146 mmol/L (136-145)
[2025-06-15 13:31] LABS: BUN/Creatinine Ratio 10.5 (10.0-20.0); Blood Urea Nitrogen 10 mg/dL (9-23); Glucose 77 mg/dL (74-106)
--- NOTE | 2025-06-15 15:01 | DVHINCON2 ---
Date of service: Jun 15, 2025 Family History: Patient reports no known family medical history. Allergies: Coded Allergies: NO KNOWN ALLERGIES (Unverified , 09/13/24) Home Meds Active Scripts Tamsulosin Hcl (Flomax) 0.4 Mg Cap, 1 CAP PO DAILY for 12 Days, #12 CAP Prov:COOPERGARFIELD PACU NURSE 05/15/25 Ibuprofen Micronized (Ibuprofen) 800 Mg Tab, 800 MG PO TID PRN, #40 TAB Prov:GARFIELD COOEPR PACU NURSE 05/15/25 Nitrofurantoin Monohydrate Mac (Macrobid) 100 Mg Cap, 100 MG PO BID for 7 Days, #14 CAP Prov:NITA MONROE DO 03/28/25 Current Medications Current Medications Medications (Trade) Dose Ordered Sig/Lisette Route PRN Reason Start Time Stop Time Status Last Admin Ceftriaxone Sodium 50 ml @ 100 mls/hr DAILY@09 IV 06/15/25 09:00 06/15/25 08:41 Metronidazole 100 ml @ 100 mls/hr Q8HR IV 06/14/25 22:00 06/15/25 05:25 Pantoprazole Sodium (Protonix) 40 mg DAILY IV 06/15/25 10:00 06/15/25 08:41 Ondansetron HCl (Zofran) 4 mg Q4HP PRN IV NAUSEA / VOMITING 06/14/25 15:15 Morphine Sulfate 2 mg Q4HPRN PRN IV SEVERE PAIN (7-10 PAIN SCALE) 06/14/25 15:15 Vital Signs Vital Signs Date Time Temp Pulse Resp B/P (MAP) Pulse Ox O2 Delivery O2 Flow Rate FiO2 06/15/25 13:00 98.9 66 18 112/76 (88) 97 98.9 06/15/25 08:00 Room Air* 0 21 Labs/Diagnostic Data Labs Test 06/15/25 12:42 06/15/25 06:02 06/14/25 15:15 06/14/25 13:41 Range/Units Sodium Level 146 H 136-145 mmol/L Potassium Level 4.3 3.5-5.1 mmol/L Chloride Level 110 H 98-107 mmol/L Carbon Dioxide Level 29 20-31 mmol/L Anion Gap 7 5-15 Blood Urea Nitrogen 10 9-23 mg/dL Creatinine 0.95 0.700-1.30 mg/dL Glomerular Filtration Rate Calc 105 >90 mL/min BUN/Creatinine Ratio 10.5 10.0-20.0 Serum Glucose 77 74-106 mg/dL Calcium Level 9.1 8.7-10.4 mg/dL White Blood Count 9.3 4.4-10.8 10^3/uL Red Blood Count 3.86 L 4.5-5.90 10^6/uL Hemoglobin 10.7 L 13.5-17.5 g/dL Hematocrit 33.5 #L 41.0-53.0 % Mean Corpuscular Volume 86.6 80.0-100.0 fL Mean Corpuscular Hemoglobin 27.8 L 28.0-32.0 pg Mean Corpuscular Hemoglobin Concent 32.1 32.0-36.0 g/dL Red Cell Distribution Width 14.4 H 11.8-14.3 % Platelet Count 360 140-450 10^3/uL Mean Platelet Volume 6.6 L 6.9-10.8 fL Neutrophils (%) (Auto) 74.1 37.0-80.0 % Lymphocytes (%) (Auto) 16.0 10.0-50.0 % Monocytes (%) (Auto) 7.8 0.0-12.0 % Eosinophils (%) (Auto) 1.8 0.0-7.0 % Basophils (%) (Auto) 0.3 0.0-2.0 % Neutrophils # (Auto) 6.9 1.6-8.6 10 ^3/uL Lymphocytes # (Auto) 1.5 0.4-5.4 10 ^3/uL Monocytes # (Auto) 0.7 0-1.3 10 ^3/uL Eosinophils # (Auto) 0.2 0-0.8 10 ^3/uL Basophils # (Auto) 0 0-0.2 10 ^3/uL Nucleated Red Blood Cells 0.1 % Hepatitis B Surface Antigen Negative Negative Hepatitis C Antibody Negative Negative Prothrombin Time 10.7 9.3-11.8 sec Prothrombin Time INR 1.01 0.9-1.15 Activated Partial Thromboplast Time 26.7 24.5-34.5 SEC Lactic Acid Level 0.9 0.4-2.0 mmol/L Test 06/14/25 09:00 06/14/25 07:04 Range/Units Urine Color Light-yellow Yellow Urine Clarity Clear Clear Urine pH 5.5 5.0-9.0 Urine Specific [place] 1.027 1.001-1.035 Urine Protein Negative Negative Urine Ketones Negative Negative Urine Blood Negative Negative /uL Urine Nitrite Negative Negative Urine Bilirubin Negative Negative Urine Urobilinogen Normal Negative mg/dL Urine Leukocyte Esterase Negative Negative /uL Urine RBC 1 0 - 3 /hpf Urine Microscopic WBC 1 0-3 /HPF Urine Squamous Epithelial Cells Few <5 /hpf Urine Bacteria None seen None Seen /hpf Urine Mucus Few None Seen Urine Glucose Normal Normal mg/dL Total Bilirubin 0.4 0.2-1.0 mg/dL Aspartate Amino Transferase (AST) 13 13-40 U/L Alanine Aminotransferase (ALT) 14 7-40 U/L Alkaline Phosphatase 125 H 46-116 U/L Total Protein 7.5 5.7-8.2 g/dL Albumin 4.3 3.2-4.8 g/dL Lipase 68 H 12-53 U/L Microbiology Date/Time Source Procedure Growth Status 06/14/25 13:44 Blood Blood Culture - Preliminary NO GROWTH AFTER 24 HOURS OF INCUBATION. Resulted Assessment [id number] C/O RUQ PAIN NOW RESOLVED AFEBRILE VSS ABD SOFT NON TENDER US AND CT SCAN NEG FOR GALLSTONE LFT ELEVATION ALKP CONSIDER MRCP TO R/O CBD STONE CONSIDER EMERGENT SURGERY BASED ON ONGOING EVAL Plan discussed with: Patient ANITRA GALEANA MD Jun 15, 2025 15:01
--- NOTE | 2025-06-15 17:01 | DVH ---
PROCEDURE: MRI MRCP MRI Indication: R/O Cholecystitis COMPARISON: 06/14/2025 TECHNIQUE: Multiplanar multisequence images of the brain are obtained. FINDINGS: Adrenal glands unremarkable. Kidneys demonstrate no hydronephrosis. 8 mm left renal cyst. Spleen unremarkable. Small bilateral pleural effusions. Pancreas unremarkable. Cholelithiasis, gallbladder wall and pericholecystic edema. The common bile duct measures 4 mm. No evidence for choledocholithiasis. The pancreatic duct is nondilated measuring 2 mm. No T2 hyperintense lesions in the liver. Stomach partially distended. Small bowel loops normal in caliber. IMPRESSION: Cholelithiasis and pericholecystic/ gallbladder wall edema , concerning for cholecystitis. Recommend HIDA scan to further evaluate. Small bilateral pleural effusions.
--- NOTE | 2025-06-15 18:53 | DVHINCON2 ---
DATE OF CONSULTATION: 06/15/2025 HISTORY OF PRESENT ILLNESS: This patient is 39 years old, coming with right upper quadrant pain, now feeling better. Pain is almost resolved. No nausea or vomiting. No constipation or diarrhea. No hematemesis or melena. No bleeding per rectum. PAST MEDICAL HISTORY: Kidney stones, schizophrenia and gout. PAST SURGICAL HISTORY: Nothing significant. PHYSICAL EXAMINATION: VITAL SIGNS: Afebrile, stable signs. HEENT: With no evidence of pallor, cyanosis, or jaundice. NECK: Supple and nontender, with no thyromegaly or lymphadenopathy. CHEST AND LUNGS: Clear. HEART: Within normal limits. ABDOMEN: Minimally tender. No rebound. EXTREMITIES: Unremarkable. NEUROLOGIC: Intact. CLINICAL IMPRESSION: Rule out acute cholecystitis. His liver enzymes are elevated. The alkaline phosphatase is mildly elevated to 125. Ultrasound shows evidence of thickened gallbladder wall, but no kidney stones or gallstones and does have nephrolithiasis bilateral and the CT scan also is not confirming gallstones. The possibility of a CBD stone cannot be ruled out. PLAN: So the plan will be to consider MRCP to rule out the CBD stone and consider HIDA scan in case needed to determine the need for surgery. MD LUCY Suh/PIPO TID: [id number] RECEIPT: [id number] cc: Patel Queen NP
[2025-06-15 20:00] VITALS: RESP 18; O2SAT 96
[2025-06-15 21:00] VITALS: BP 113/69; PULSE 50; RESP 16; TEMP 98.2; O2SAT 96
[2025-06-16 01:00] VITALS: BP 115/70; PULSE 70; RESP 18; TEMP 97.9; O2SAT 97
[2025-06-16 05:47] LABS: Hematocrit 34.6 % (41.0-53.0); Hemoglobin 11.3 g/dL (13.5-17.5); Mean Corpuscular Hemoglobin 28.0 pg (28.0-32.0); Mean Corpuscular Volume 86.0 fL (80.0-100.0); Nucleated Red Blood Cells % 0.1 %
[2025-06-16 06:17] LABS: Albumin 3.8 g/dL (3.2-4.8); Alkaline Phosphatase 109 U/L (46-116); Anion Gap 8 (5-15); BUN/Creatinine Ratio 10.0 (10.0-20.0); Calcium 9.1 mg/dL (8.7-10.4); Carbon Dioxide 26 mmol/L (20-31); Glucose 83 mg/dL (74-106); Potassium 3.7 mmol/L (3.5-5.1); Sodium 145 mmol/L (136-145); Total Protein 6.5 g/dL (5.7-8.2)
[2025-06-16 06:20] LABS: Alanine Aminotransferase < 9 U/L (7-40); Blood Urea Nitrogen 8 mg/dL (9-23); Chloride 111 mmol/L (98-107)
[2025-06-16 06:28] LABS: Bilirubin, Total 0.5 mg/dL (0.2-1.0)
[2025-06-16 08:00] VITALS: PULSE 87; RESP 18; O2SAT 97
[2025-06-16 09:00] VITALS: BP 118/79; PULSE 87; RESP 18; TEMP 98.4; O2SAT 97
--- NOTE | 2025-06-16 12:26 | DVHPN2 ---
Subjective no complaints Changes from previous H/P or p: No Changes Objective Vitals Vital Signs Date Time Temp Pulse Resp B/P (MAP) Pulse Ox O2 Delivery O2 Flow Rate FiO2 06/16/25 09:00 98.4 87 18 118/79 (92) 97 98.4 06/16/25 08:00 Room Air* 0 21 Intake/Output Intake and Output 06/16/25 07:00 Intake Total 1050 ml Balance 1050 ml Intake Oral 900 ml IV Total 150 ml # Voids 6 General Appearance: Alert, Oriented X3, Cooperative, No acute distress Lungs: Clear to auscultation Cardiovascular: Regular rate, Normal S1, Normal S2 Abdomen: Normal bowel sounds, Soft, No tenderness, No hepatospenomegaly Neuro: Normal gait, Normal speech, Strength at 5/5 X4 ext, Normal tone, S ensation intact, Cranial nerves 3-12 NL, Reflexes 2+ Psych/Mental Status: Mental status NL, Mood NL Medications Current Medications Medications Dose Ordered Sig/Lisette Route Start Time Stop Time Status Last Admin Dose Admin Ceftriaxone Sodium 50 ml @ 100 mls/hr DAILY@09 IV 06/15/25 09:00 06/16/25 10:10 100 MLS/HR Metronidazole 100 ml @ 100 mls/hr Q8HR IV 06/14/25 22:00 06/16/25 05:32 100 MLS/HR Pantoprazole Sodium 40 mg DAILY IV 06/15/25 10:00 06/16/25 10:10 40 MG Ondansetron HCl 4 mg Q4HP PRN IV 06/14/25 15:15 Morphine Sulfate 2 mg Q4HPRN PRN IV 06/14/25 15:15 Laboratory Results Laboratory Tests 06/16/25 05:08 Chemistry Test 06/15/25 12:42 06/16/25 05:08 Calcium Level 9.1 mg/dL (8.7-10.4) 9.1 mg/dL (8.7-10.4) Albumin 3.8 g/dL (3.2-4.8) Total Protein 6.5 g/dL (5.7-8.2) LFT Test 06/16/25 05:08 Alanine Aminotransferase (ALT) < 9 U/L (7-40) Alkaline Phosphatase 109 U/L (46-116) Aspartate Amino Transferase (AST) 13 U/L (13-40) Total Bilirubin 0.5 mg/dL (0.2-1.0) Urinalysis Test 06/14/25 09:00 Urine Color Light-yellow (Yellow) Urine Clarity Clear (Clear) Urine pH 5.5 (5.0-9.0) Urine Specific [place] 1.027 (1.001-1.035) Urine Protein Negative (Negative) Urine Ketones Negative (Negative) Urine Blood Negative /uL (Negative) Urine Nitrite Negative (Negative) Urine Bilirubin Negative (Negative) Urine Urobilinogen Normal mg/dL (Negative) Urine Leukocyte Esterase Negative /uL (Negative) Urine RBC 1 /hpf (0 - 3) Urine Microscopic WBC 1 /HPF (0-3) Urine Squamous Epithelial Cells Few /hpf (<5) Urine Bacteria None seen /hpf (None Seen) Urine Mucus Few (None Seen) Urine Glucose Normal mg/dL (Normal) Microbiology Microbiology Date/Time Source Procedure Growth Status 06/14/25 13:44 Blood Blood Culture - Preliminary NO GROWTH AFTER 24 HOURS OF INCUBATION. Resulted Assessment/Plan Assessment/Plan abdominal pain/biliary colic resolved- pt advised on foods to avoid mrcp shows cholelithiasis and gallbladder wall edema- await surgery opinion- Plan discussed with: Patient, Other My Orders Orders - ZEE BENAVIDES MD Procedure Category Date Status Time Nm Hida Scan NM 06/16/25 Logged 11:11 Regular Diet DIET 06/16/25 Transmitted Lunch Date of Service: Jun 16, 2025 Billing Provider: ZEE BENAVIDES MD Common Visit Codes: [id number] INP/OBS CARE(MOD) ZEE BENAVIDES MD Jun 16, 2025 12:26
[2025-06-16 13:00] VITALS: BP 109/75; PULSE 60; RESP 18; TEMP 98.3; O2SAT 98
[2025-06-16 16:56] VITALS: BP 110/69; PULSE 73; RESP 20; TEMP 98.3; O2SAT 96
--- NOTE | 2025-06-16 17:22 | DVHPN2 ---
Progress Note Date Seen: Jun 16, 2025 Medical Necessity Reason Pt with a Central, PICC or Fol: No Objective vital signs Vital Sign Date Time Temp Pulse Resp B/P (MAP) Pulse Ox O2 Delivery O2 Flow Rate FiO2 06/16/25 16:56 98.3 73 20 110/69 (83) 96 98.3 06/16/25 08:00 Room Air* 0 21 Total Intake and Output 06/15/25 06/15/25 06/16/25 15:00 23:00 07:00 Intake Total 50 ml 500 ml 500 ml Balance 50 ml 500 ml 500 ml medications Current Medications Medications Dose Ordered Sig/Lisette Route Start Time Stop Time Status Last Admin Dose Admin Ceftriaxone Sodium 50 ml @ 100 mls/hr DAILY@09 IV 06/15/25 09:00 06/16/25 10:10 100 MLS/HR Metronidazole 100 ml @ 100 mls/hr Q8HR IV 06/14/25 22:00 06/16/25 14:02 100 MLS/HR Pantoprazole Sodium 40 mg DAILY IV 06/15/25 10:00 06/16/25 10:10 40 MG Ondansetron HCl 4 mg Q4HP PRN IV 06/14/25 15:15 Morphine Sulfate 2 mg Q4HPRN PRN IV 06/14/25 15:15 laboratory and microbiology Laboratory Tests 06/16/25 05:08 Test 06/16/25 05:08 Range/Units Serum Glucose 83 74-106 mg/dL Microbiology Date/Time Source Procedure Growth Status 06/14/25 13:44 Blood Blood Culture - Preliminary NO GROWTH AFTER 48 HOURS OF INCUBATION. Resulted Problem List/Assessment/Plan Problem List/Assessment/Plan AFEBRILE VSS ABD SOFT LESS TENDER LFT WNL MRCP NEG FOR CBD STONE PROCEED WITH LAP/OPEN CHOLECYSTECTOMY PT TO DECIDE KEEP NPO AFTER MN NURSE AT BEDSIDE Plan discussed with: Patient ANITRA GALEANA MD Jun 16, 2025 17:22
[2025-06-16 21:00] VITALS: BP 110/76; PULSE 83; RESP 19; TEMP 98.5; O2SAT 97
[2025-06-17 05:00] VITALS: BP 119/81; PULSE 80; RESP 19; TEMP 97.9; O2SAT 98
[2025-06-17 06:27] LABS: Hematocrit 34.0 % (41.0-53.0); Hemoglobin 11.1 g/dL (13.5-17.5); Mean Corpuscular Hemoglobin 28.3 pg (28.0-32.0); Mean Corpuscular Volume 86.7 fL (80.0-100.0); Nucleated Red Blood Cells % 0.1 %
[2025-06-17 08:00] VITALS: PULSE 60
[2025-06-17 09:00] VITALS: BP 108/73; PULSE 60; RESP 18; TEMP 98.3; O2SAT 100
--- NOTE | 2025-06-17 09:19 | DVHPN2 ---
Subjective NO COMPLAINTS Changes from previous H/P or p: No Changes Objective Vitals Vital Signs Date Time Temp Pulse Resp B/P (MAP) Pulse Ox O2 Delivery O2 Flow Rate FiO2 06/17/25 05:00 97.9 80 19 119/81 (94) 98 97.9 06/16/25 20:00 Room Air* 0 21 Intake/Output Intake and Output 06/17/25 07:00 Intake Total 1400 ml Balance 1400 ml Intake Oral 1200 ml IV Total 200 ml # Voids 5 # Bowel Movements 2 General Appearance: Alert, Oriented X3, Cooperative, No acute distress Lungs: Clear to auscultation Cardiovascular: Regular rate, Normal S1, Normal S2 Abdomen: Normal bowel sounds, Soft, No tenderness, No hepatospenomegaly Neuro: Normal gait, Normal speech, Strength at 5/5 X4 ext, Normal tone, S ensation intact, Cranial nerves 3-12 NL, Reflexes 2+ Psych/Mental Status: Mental status NL, Mood NL Medications Current Medications Medications Dose Ordered Sig/Lisette Route Start Time Stop Time Status Last Admin Dose Admin Ceftriaxone Sodium 50 ml @ 100 mls/hr DAILY@09 IV 06/15/25 09:00 06/16/25 10:10 100 MLS/HR Metronidazole 100 ml @ 100 mls/hr Q8HR IV 06/14/25 22:00 06/17/25 05:02 100 MLS/HR Pantoprazole Sodium 40 mg DAILY IV 06/15/25 10:00 06/16/25 10:10 40 MG Ondansetron HCl 4 mg Q4HP PRN IV 06/14/25 15:15 Morphine Sulfate 2 mg Q4HPRN PRN IV 06/14/25 15:15 Laboratory Results Laboratory Tests 06/16/25 05:08 06/17/25 05:30 Urinalysis Test 06/14/25 09:00 Urine Color Light-yellow (Yellow) Urine Clarity Clear (Clear) Urine pH 5.5 (5.0-9.0) Urine Specific [place] 1.027 (1.001-1.035) Urine Protein Negative (Negative) Urine Ketones Negative (Negative) Urine Blood Negative /uL (Negative) Urine Nitrite Negative (Negative) Urine Bilirubin Negative (Negative) Urine Urobilinogen Normal mg/dL (Negative) Urine Leukocyte Esterase Negative /uL (Negative) Urine RBC 1 /hpf (0 - 3) Urine Microscopic WBC 1 /HPF (0-3) Urine Squamous Epithelial Cells Few /hpf (<5) Urine Bacteria None seen /hpf (None Seen) Urine Mucus Few (None Seen) Urine Glucose Normal mg/dL (Normal) Microbiology Microbiology Date/Time Source Procedure Growth Status 06/14/25 13:44 Blood Blood Culture - Preliminary NO GROWTH AFTER 48 HOURS OF INCUBATION. Resulted Labs and/or images reviewed: Labs reviewed by me, Image(s) reviewed by me Assessment/Plan Assessment/Plan abdominal pain/biliary colic resolved- pt advised on foods to avoid/awaiting surgery- today mrcp shows cholelithiasis and gallbladder wall edema- await surgery opinion- Plan discussed with: Patient, Other My Orders Orders - ZEE BENAVIDES MD Procedure Category Date Status Time Nm Hida Scan NM 06/16/25 Logged 11:11 Regular Diet DIET 06/16/25 Transmitted Lunch Date of Service: Jun 17, 2025 Billing Provider: ZEE BENAVIDES MD Common Visit Codes: [id number] INP/OBS CARE(MOD) ZEE BENAVIDES MD Jun 17, 2025 09:19
[2025-06-17] MEDS: D5W/SOD CHLO 0.9% 1,000 ML IV SCH (10:51)
[2025-06-17 13:00] VITALS: BP 99/75; PULSE 51; RESP 20; TEMP 98.4; O2SAT 99
--- NOTE | 2025-06-17 15:55 | DVHPN2 ---
Progress Note Date Seen: Jun 17, 2025 Medical Necessity Reason Pt with a Central, PICC or Fol: No Objective vital signs Vital Sign Date Time Temp Pulse Resp B/P (MAP) Pulse Ox O2 Delivery O2 Flow Rate FiO2 06/17/25 13:00 98.4 51 20 99/75 (83) 99 98.4 06/17/25 08:00 Room Air* 0 21 Total Intake and Output 06/16/25 06/16/25 06/17/25 15:00 23:00 07:00 Intake Total 700 ml 700 ml Balance 700 ml 700 ml medications Current Medications Medications Dose Ordered Sig/Lisette Route Start Time Stop Time Status Last Admin Dose Admin Ceftriaxone Sodium 50 ml @ 100 mls/hr DAILY@09 IV 06/15/25 09:00 06/17/25 09:00 100 MLS/HR Metronidazole 100 ml @ 100 mls/hr Q8HR IV 06/14/25 22:00 06/17/25 14:28 100 MLS/HR Pantoprazole Sodium 40 mg DAILY IV 06/15/25 10:00 06/17/25 09:55 40 MG Ondansetron HCl 4 mg Q4HP PRN IV 06/14/25 15:15 Morphine Sulfate 2 mg Q4HPRN PRN IV 06/14/25 15:15 Dextrose/Sodium Chloride 1,000 ml @ 75 mls/hr [id number] IV 06/17/25 09:30 06/17/25 10:51 75 MLS/HR laboratory and microbiology Laboratory Tests 06/17/25 05:30 06/16/25 05:08 Test 06/16/25 05:08 Range/Units Serum Glucose 83 74-106 mg/dL Microbiology Date/Time Source Procedure Growth Status 06/14/25 13:44 Blood Blood Culture - Preliminary NO GROWTH AFTER 72 HOURS OF INCUBATION. Resulted Problem List/Assessment/Plan Problem List/Assessment/Plan AFEBRILE VSS ABD SOFT LESS TENDER LFT WNL MRCP NEG FOR CBD STONE CONSIDER EMERGENT/ELECTIVE LAP/OPEN CHOLECYSTECTOMY PT WANTS TO CONSIDER ELECTIVE OUTPT SURGERY ALLOW CLEAR LIQUIDS NURSE AT BEDSIDE Plan discussed with: Patient ANITRA GALEANA MD Jun 17, 2025 15:55
[2025-06-17 16:56] VITALS: BP 112/69; PULSE 56; RESP 20; TEMP 36.9; O2SAT 100
[2025-06-17 17:00] VITALS: BP 112/69; PULSE 56; RESP 20; TEMP 98.1; O2SAT 100
== END 2025-06-17 17:37 | disposition home or self-care (01) ==
LOC: ER 06:22 → OVERFLOW 15:02 → CENTRAL 16:28
PROVIDERS: ADMIT Internal Medicine; ATTEND Internal Medicine
DX: K80.00 Calculus of gallbladder with acute cholecystitis without obstruction (principal); D72.829 Elevated white blood cell count, unspecified; F32.A Depression, unspecified; F20.9 Schizophrenia, unspecified; F17.210 Nicotine dependence, cigarettes, uncomplicated; F41.9 Anxiety disorder, unspecified; M10.9 Gout, unspecified; R79.89 Other specified abnormal findings of blood chemistry; Z87.442 Personal history of urinary calculi; Z82.49 Family history of ischemic heart disease and other diseases of the circulatory system
CPT/HCPCS: 36415; 74176; 74181; 76700; 80048; 80053; 81001; 83605; 83690; 85025; 85610; 85730; 86803; 86850; 86900; 86901; 87040; 87340; 96361; 96374; 96375; G0378; J2405; J2470; J3490